=== PATIENT | female | born 1955 | race Caucasian/White ===

== ENCOUNTER 2021-01-11 09:02 | Outpatient (REF) | payer MEDICARE, OTHER, SELFPAY ==
[2021-01-11 11:52] LABS: Hemoglobin 14.3 g/dl (12.0-16.0); Mean Corpuscular HGB Conc 32.5 g/dl (31.0-35.0); Mean Corpuscular Hemoglobin 29.1 pg (27.0-33.0); Mean Corpuscular Volume 89.6 fL (80.0-98.0); Mean Platelet Volume 10.8 fL (9.4-12.3); Platelet Count 289 X10*3/uL (160-400); Red Blood Count 4.91 X10*6/uL (4.20-5.50); Red Cell Distribution Width 12.7 % (11.0-16.0); White Blood Count 9.7 X10*3/uL (4.8-10.8)
[2021-01-11 12:11] LABS: Alanine Aminotransferase 21 U/L (0-31); Albumin Level 4.6 g/dL (3.5-5.0); Alkaline Phosphatase 80 U/L (39-117); Anion Gap 14 (12-20); Aspartate Amino Transferase 23 U/L (5-31); Bilirubin Total 0.5 mg/dL (0.0-1.0); Blood Urea Nitrogen 8 mg/dL (9-16); Calcium 9.4 mg/dL (8.4-10.2); Carbon Dioxide 26 mmol/L (22-29); Chloride 104 mmol/L (96-108); Cholesterol 203 mg/dL; Estimated Glomerular Filt Rate > 60; Glucose Fasting 108 mg/dL (60-99); HDL Cholesterol 57 mg/dL; LDL Cholesterol Calculated 128 mg/dl; Potassium 4.5 mmol/L (3.3-5.1); Sodium 139 mmol/L (135-145); Total Protein 7.5 g/dL (6.5-8.0); Triglycerides 90 mg/dL
[2021-01-11 12:37] LABS: Vitamin D 25-OH Total 36.2 ng/mL (>30)
[2021-01-11 12:40] LABS: Folate 18.8 ng/mL (> or = 4.0); Vitamin B12 565 pg/mL (200-900)
== END 2021-01-11 09:03 | disposition home or self-care (01) ==
LOC: HO.HMGCLDS 09:02
PROVIDERS: PCP Internal Medicine; Visit Provider Internal Medicine
DX: Z00.00 Encounter for general adult medical examination without abnormal findings (principal); E55.9 Vitamin D deficiency, unspecified; Z78.0 Asymptomatic menopausal state
CPT/HCPCS: 36415; 80053; 80061; 82306; 82607; 82746; 85027

== ENCOUNTER 2021-02-16 13:04 | Outpatient (REF) | payer MEDICARE, OTHER, SELFPAY ==
--- NOTE | ~2021-02-16 | MM_ITS ---
EXAMINATION: BONE DENSITOMETRY CLINICAL INDICATION: Menopause. COMPARISON: None (current study represents initial baseline exam). TECHNIQUE: Using a [employer] DXA System (software version: 13.1) manufactured by [employer], dual-energy x-ray absorptiometry was performed of the lumbar spine and left hip. The images are of good technical quality. Summary results are attached. FINDINGS: AP SPINE L1-L4: BMD 1.031 g/cm2, Z-score 0.4, T-score -1.2, osteopenia. LEFT FEMUR, NECK: BMD 0.944 g/cm2, Z-score 0.8, T-score -0.7, normal. LEFT FEMUR, TOTAL: BMD 0.931 g/cm2, Z-score 0.6, T-score -0.6, normal. IDENTIFIED RISK FACTORS: Menopause. HISTORY OF FRACTURE: None listed. MEDICATIONS: Vitamin D. MM/XR DEXA axial skeleton IMPRESSION: 1. DIAGNOSIS: Osteopenia based on the lowest T-score value of -1.2 in the lumbar spine applying World Health Organization criteria. 2. 10-YEAR FRACTURE RISK PREDICTION, FRAX: Major osteoporotic fracture (clinical spine, forearm, hip or shoulder) 7.4%. Hip fracture 0.4%. 3. Treatment Recommendations: NOF guidelines recommend consideration for treatment in postmenopausal women and men age 50 and older presenting with the following: -A hip or vertebral (clinical or morphometric) fracture. -T-score less than or equal to -2.5 at the femoral neck or spine after appropriate evaluation to exclude secondary causes. -Low bone mass at the hip or spine and a 10-year fracture probability by FRAX of greater than or equal to 3% for hip fracture or greater than or equal to 20% for major osteoporotic fracture based on the [place] adapted WHO algorithm. 4. Other Recommendations: All treatment decisions require clinical judgment and consideration of individual patient factors, including patient preferences, comorbidities, previous drug use, risk factors not captured in the FRAX model (e.g. frailty, falls, vitamin D deficiency, increased bone turnover, interval significant decline in bone density) and possible under or overestimation of fracture risk by FRAX. Additional medical evaluation for secondary cause of low bone mineral density may be appropriate. FUTURE SCAN RECOMMENDATION: People with diagnosed cases of osteoporosis or at high risk for fracture should have regular bone mineral density tests. For patients eligible for Medicare, routine testing is allowed once every 2 years. The testing frequency can be increased to one year for patients who have rapidly progressing disease, those who are receiving or discontinuing medical therapy to restore bone mass, or have additional risk factors.
== END 2021-02-16 13:05 | disposition home or self-care (01) ==
LOC: HO.MAMMO 13:04
PROVIDERS: Visit Provider Internal Medicine
DX: Z13.820 Encounter for screening for osteoporosis (principal); M85.80 Other specified disorders of bone density and structure, unspecified site; Z78.0 Asymptomatic menopausal state; Z79.899 Other long term (current) drug therapy
CPT/HCPCS: 77080

== ENCOUNTER 2022-08-17 06:09 | Outpatient (REF) | payer MEDICARE, OTHER, SELFPAY ==
[2022-08-17 11:14] LABS: MANUAL DIFF FLAG NO
[2022-08-17 11:21] LABS: Basophils Absolute Auto 0.1 X10*3/uL (0.0-0.2); Eosinophils Absolute Auto 0.7 X10*3/uL (0.0-0.4); Eosinophils Percent Auto 7.8 % (0-4); Hematocrit 42.3 % (37.0-47.0); Hemoglobin 13.9 g/dl (12.0-16.0); Imm Gran Abs Auto 0.06 X10*3/uL (0.00-0.03); Imm Gran Pct Auto 0.7 % (0.0-0.4); Lymphocytes Absolute Auto 1.9 X10*3/uL (1.2-4.9); Lymphocytes Percent Auto 21.6 % (20-40); Mean Corpuscular HGB Conc 32.9 g/dl (31.0-35.0); Mean Corpuscular Hemoglobin 29.8 pg (27.0-33.0); Mean Corpuscular Volume 90.8 fL (80.0-98.0); Mean Platelet Volume 10.3 fL (9.4-12.3); Monocytes Absolute Auto 0.6 X10*3/uL (0.1-1.2); Monocytes Percent Auto 6.2 % (2-11); Neutrophils Absolute Auto 5.5 x10*3/uL (2.0-8.3); Neutrophils Percent Auto 62.7 % (45-73); Platelet Count 303 X10*3/uL (160-400); Red Blood Count 4.66 X10*6/uL (4.20-5.50); Red Cell Distribution Width 13.4 % (11.0-16.0); White Blood Count 8.8 X10*3/uL (4.8-10.8)
[2022-08-17 11:27] LABS: Appearance Urine Clear; Color Urine Dark Yellow; Glucose Urine UA Negative (Negative); Leukocyte Esterase Urine Negative (Negative); Nitrite Urine Negative (Negative); Urine Blood Negative (Negative); Urine Ketones Trace mg/dL (Negative); Urine Protein Trace mg/dL (Neg-Trace)
[2022-08-17 11:30] LABS: Bacteria Urine Trace (None Seen); Hyaline Casts Urine 0-2 /LPF (0-2); WBC Urine 0-5 /HPF (0-5)
[2022-08-17 12:00] LABS: Alanine Aminotransferase 16 U/L (0-31); Albumin Level 4.1 g/dL (3.5-5.0); Alkaline Phosphatase 56 U/L (39-117); Anion Gap 11 (12-20); Aspartate Amino Transferase 20 U/L (5-31); Blood Urea Nitrogen 11 mg/dL (9-16); Calcium 9.6 mg/dL (8.4-10.2); Carbon Dioxide 27 mmol/L (22-29); Chloride 106 mmol/L (96-108); Cholesterol 172 mg/dL; Estimated Glomerular Filt Rate > 60; Glucose Fasting 101 mg/dL (60-99); HDL Cholesterol 45 mg/dL; LDL Cholesterol Calculated 112 mg/dl; Potassium 4.4 mmol/L (3.3-5.1); Sodium 140 mmol/L (135-145); Total Protein 6.9 g/dL (6.5-8.0); Triglycerides 79 mg/dL
[2022-08-17 12:21] LABS: TSH reflex Free T4 1.07 uIU/mL (0.32-4.0); Vitamin D 25-OH Total 48.2 ng/mL (>30)
[2022-08-17 12:29] LABS: Folate 17.2 ng/mL (> or = 4.0); Vitamin B12 526 pg/mL (200-900)
== END 2022-08-17 06:10 | disposition home or self-care (01) ==
LOC: HO.HMGCLDS 06:09
PROVIDERS: PCP Internal Medicine; Visit Provider Internal Medicine
DX: Z00.00 Encounter for general adult medical examination without abnormal findings (principal); E53.8 Deficiency of other specified B group vitamins; E55.9 Vitamin D deficiency, unspecified
CPT/HCPCS: 36415; 80053; 80061; 81001; 82306; 82607; 82746; 84443; 85025

== ENCOUNTER 2022-08-23 06:09 | Outpatient (REF) | payer MEDICARE, OTHER, SELFPAY ==
[2022-08-23 11:35] LABS: Appearance Urine Clear; Color Urine Yellow; Glucose Urine UA Negative (Negative); Leukocyte Esterase Urine Trace (Negative); Nitrite Urine Negative (Negative); Specific Gravity - Urine 1.015 (1.005-1.025); UMIC TRIGGER UA YES; Urine Blood Negative (Negative); Urine Ketones Negative (Negative); Urine Protein Negative (Neg-Trace)
[2022-08-23 11:39] LABS: Bacteria Urine None Seen (None Seen); Hyaline Casts Urine 0-2 /LPF (0-2); RBC Urine 0-2 /HPF (0-2); WBC Urine 0-5 /HPF (0-5)
== END 2022-08-23 06:10 | disposition home or self-care (01) ==
LOC: HO.HMGCLDS 06:09
PROVIDERS: PCP Internal Medicine; Visit Provider Internal Medicine
DX: R31.29 Other microscopic hematuria (principal)
CPT/HCPCS: 81001; 87086

== ENCOUNTER 2022-09-08 07:10 | Outpatient (AMB) | payer MEDICARE, OTHER, SELFPAY ==
--- NOTE | 2022-09-08 07:16 | MHC.OFFVIS ---
Intake Vital Signs 09/08/22 07:21 Height 5 ft 5 in Weight 134 lb BMI 22.3 BP 106/61 Blood Pressure Location Lt brachial Position Sitting Pulse 65 Intake Visit Reasons: Hx Colon Polyps, Fecal Abnormalities Intake Note: Patient new consult for Hx Colon Polyps, Fecal Abnormalities. Patient cc: abdominal bloating, gassy, acid reflex, very thing and soft BM and occasional esophagus pain. 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 Accompanied by: Self / Same As Patient Allergies latex Allergy (Verified 09/08/22 07:15) eyes swelling Medication List - Last Reconciled 09/08/22 by Gretchen Holguin PA-C ascorbic acid (vitamin C) mg PO betamethasone, augmented 0.05 % topical cholecalciferol (vitamin D3) 25 mcg PO DAILY cyanocobalamin (vitamin B-12) 2,500 mcg PO DAILY krill [id number]-nylhfkuui 353 mg ([facility]) caps PO HPI HPI Comments History of Present Illness Details A 66 y/o female hx colon polyps- noted change in bowel diameter- hx colon polyps- colonoscopy Q 3 years- last 2019- no polyps- pushed out to 5 years- She is worried-there is such a drastic change- - has a history of polyps on vocal cords- after smoking for 50 years- more heartburn- taking more tums- Night sweats (? hot flashe)- cough- Appetite is good- reflux declines ppi No nausea, vomiting, hematemesis, hematochezia fever or chills PFSH Medical History (Updated 09/13/22 @ 11:44 by Gretchen Holguin PA-C) Acid reflux Annual physical exam Glaucoma Normal breast exam Postmenopausal Tobacco dependence Vitamin D deficiency Vocal cord polyps Surgical History H/O colonoscopy History of repair of vocal cord Family History Father No problems noted. Mother No problems noted. 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, Housing: House Patient Tobacco Use Status: Former Tobacco user Years Smoked: 50 yrs e-Cigarette/Vaping Use: Never Used Current occupational status: retired Cognitive needs: No Hearing needs: No Vision needs: Yes Review of Systems Const All systems reviewed & are unremarkable except as noted in HPI and below Denies weight gain Card Denies chest pain and Denies dyspnea Resp Denies dyspnea GI Denies abdominal pain, Reports change in bowel habits and Reports heartburn (Declines PPI) Psych Reports anxiety Physical Exam Vital Signs: Last Vital Signs Pulse 65 09/08/22 07:21 BP 106/61 09/08/22 07:21 BMI result Body Mass Index 22.3 Const General: cooperative, healthy appearing, comfortable and no acute distress Orientation/consciousness: patient oriented x3 Limitations: no limitations Eyes Sclerae: sclerae normal Resp Effort & Inspection: normal respiratory effort and able to speak in complete sentences Auscultation: clear to auscultation bilaterally, no rales, no rhonchi and no wheezes Cardio Rate: regular rate Rhythm: regular rhythm Heart sounds: S1 normal heart sound present and S2 normal heart sound present GI Palpation (GI): Soft to palpation and nontender Auscultation: normal bowel sounds Skin General skin exam: no rashes or lesions noted Neuro General: patient oriented x3 Extrem General: Yes full ROM Psych Appearance: grossly normal and well kempt Mental Status: mental status grossly normal Speech and movement: Normal speech and movement present and Clear speech present Affect: normal affect Attitude: cooperative Thought process: Normal thought process present Thought content: Normal thought content present Insight: Good insight present (Psych) Judgement: Good judgement present (Psych) Results Reviewed Results Reviewed: Chest CT- - no nodule Assessment & Plan Assessment & Plan (1) H/O colonoscopy: Comment: 12/2018, hx of polyps, Q [address] Gage Code(s): Z98.890 - Other specified postprocedural states Plan: Colonoscopy (2) Hx of colonic polyp: Comment: History of colon polyps-very anxious-previous colonoscopies every 3 years Will get repeat colonoscopy really sure Code(s): Z86.010 - Personal history of colonic polyps (3) Change in stool caliber: Comment: Likely increase fiber Code(s): R19.5 - Other fecal abnormalities (4) Acid reflux: Comment: Years of acid reflux, tones have increased need declines PPI Long history of cigarette smoking,-EGD Code(s): K21.9 - Gastro-esophageal reflux disease without esophagitis Plan: Encourage PPI-risks of not using acid suppression EGD r/o pud, nonulcer dyspepsia, esophagitis other endoscopic findings to account for her symptoms Reflux precautions reviewed avoid culprits Plan EGD/ colon/ MG prep Orders: Orders EGD/[place] Combo - GI Use Only 09/08/22 Z86.010 - Personal history of colonic polyps, Z98.890 - Other specified postprocedural states Medications: New bisacodyl (Dulcolax (bisacodyl)) Take 4 tablets by mouth at 12:00pm the day before your procedure. 20 mg (4 x 5 mg) PO ONCE 1 day 4 tabs 0RF colonoscopy prep Z12.11 - Encounter for screening for malignant neoplasm of colon polyethylene glycol 3350 (Miralax) Take as directed by mouth the day before your procedure. 238 grams PO ONCE 1 day PRN 238 grams 0RF laxative effect Patient Instructions: Pleasant somewhat anxious 66-year-old female personal history of colon polyps, vocal cord polyps referred with change in stool pattern-persistent acid reflux declines PPI Will schedule EGD as well as a colonoscopy-she is agreeable, discussed procedures, risks, need for escort due to anesthesia-MiraLax Gatorade prep literature Maintain high-fiber diet, fiber supplement Encouraged to call questions or concerns Appreciate the opportunity to assist in the care of the patient Coding Level of Care Code New Pt Level 3 (12988) Diagnoses H/O colonoscopy Z98.890 Hx of colonic polyp Z86.010 Change in stool caliber R19.5 Acid reflux K21.9 Time Spent (min) 30
[2022-09-08 07:21] VITALS: BP 106/61; PULSE 65; BMI 22.3
== END 2022-09-08 09:58 | disposition home or self-care (01) ==
PROVIDERS: PCP Internal Medicine; Visit Provider Physician Assistant
DX: Z98.890 Other specified postprocedural states (principal); Z86.010 Personal history of colon polyps; R19.5 Other fecal abnormalities; K21.9 Gastro-esophageal reflux disease without esophagitis
CPT/HCPCS: 99203

== ENCOUNTER → 2022-09-08 07:10 | Outpatient (BNVA) | payer MEDICARE, OTHER, SELFPAY | PROVIDERS: PCP Internal Medicine; Visit Provider Physician Assistant | DX: R19.5 Other fecal abnormalities (principal); K21.9 Gastro-esophageal reflux disease without esophagitis; Z86.010 Personal history of colon polyps | CPT/HCPCS: 99202 ==

== ENCOUNTER 2022-11-29 06:50 | Day surgery (SDC) | payer MEDICARE, OTHER, SELFPAY ==
[2022-11-25 11:07] VITALS: BMI 22.3
[2022-11-29 07:00] VITALS: BP 118/71; PULSE 55; RESP 16; TEMP 36.7; O2SAT 97
--- NOTE | 2022-11-29 08:04 | HO.ANESPROP2 ---
[facility] Active Problems Active Problems: All Active Problems (Updated 09/13/22 @ 11:44 by Gretchen Holguin PA-C) Acid reflux (Acute) Microscopic hematuria (Acute) Hx of colonic polyp (Acute) Change in stool caliber (Acute) Vitamin B12 deficiency (Acute) Vitamin D deficiency (Acute) Annual physical exam (Acute) Postmenopausal (Acute) H/O colonoscopy (Acute) Normal breast exam (Acute) Glaucoma (Acute) Tobacco dependence (Acute) Past Medical History Medical History (Updated 09/13/22 @ 11:44 by Gretchen Holguin PA-C) Acid reflux Vitamin D deficiency Annual physical exam Postmenopausal Normal breast exam Glaucoma Tobacco dependence Vocal cord polyps Family History Family History Father No problems noted. Mother No problems noted. 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 Tobacco Use Status: Former Tobacco user Years Smoked: 50 yrs e-Cigarette/Vaping Use: Never Used Use of substances other than those prescribed or required for medical reasons: No Advance Directives: No Advance Directives Information Provided: Yes Recently lost weight without trying: No Current occupational status: retired Cognitive needs: No Hearing needs: No Vision needs: Yes Meds Allergies Allergy/AdvReac Type Severity Reaction Status Date / Time latex Allergy eyes Verified 09/08/22 07:15 swelling Home Medications Medication Instructions Recorded Confirmed Last Taken Type ascorbic acid (vitamin C) 500 mg 500 mg PO DAILY 01/11/21 11/25/22 Unknown History capsule cholecalciferol (vitamin D3) 25 25 mcg PO DAILY 01/11/21 11/25/22 Unknown History mcg (1,000 unit) capsule cyanocobalamin (vitamin B-12) 2,500 mcg PO DAILY 01/11/21 11/25/22 Unknown History 2,500 mcg tablet krill oil-hyaluronic 1 cap PO DAILY 01/11/21 11/25/22 Unknown History acid-astaxanthin 353 mg capsule ([facility]) betamethasone, augmented 0.05 % 1 appl topical DAILY 08/12/22 11/25/22 Unknown History topical ointment Exam Exam Date and Time: November 29, 2022 0804 Height,Weight and Vital Signs: Height 5 ft 5 in Weight 60.781 kg Last Vital Signs Temp 98.1 F 11/29/22 07:00 Pulse 55 11/29/22 07:00 Resp 16 11/29/22 07:00 BP 118/71 11/29/22 07:00 Pulse Ox 97 11/29/22 07:00 O2 Del Method Room Air 11/29/22 07:00 Airway Mallampati Class: II TM Dist: >3cm Neck ROM: Full Denture: Upper Assessment and Plan Assessment Anesthesia Assessment: Anesthesia Plan Discussed and Chart Reviewed Final Anesthetic Review Family History of Problems with Anesthesia: No History of Problems with Anesthesia: No NPO: Yes ASA Class: II Final Preanesthetic Review: No Changes in Pt Med Stat, Meds/Allgs Chart Reviewed, Consent Obtained/Reviewed and Anes Risks/Benef Reviewed Patient Risk: Low Procedure Risk: Low Anesthetic Plan Anesthetic Plan: MAC: Disposition: Standard PACU
--- NOTE | 2022-11-29 08:45 | MHC.SHP ---
Pre-Procedural Eval Section A Date of Service: 11/29/22 Section B Chief Complaint: GERD, Screening, Personal history of colonic polyp Relevant Family History (Specify if Yes): No Relevant Social History: None Present Medications: see Short Stay Collaborative assessment Medical History: Significant History (Acid reflux Annual physical exam Glaucoma Normal breast exam Postmenopausal Tobacco dependence Vitamin D deficiency Vocal cord polyps) History of Previous Operations: Relevant previous surgery/procedure and date(s) (H/O colonoscopy History of repair of vocal cord) Allergies: Allergies Allergy/AdvReac Type Severity Reaction Status Date / Time latex Allergy eyes Verified 09/08/22 07:15 swelling Review of Systems Sugical H&P ROS: Negative: Constitution, Cardiovascular, Respiratory, Neurological, Psychiatric, Hem-Onc, Allergic/Immunologic, Gastrointestinal, Genitourinary, Musculoskeletal, Integumentary, Endocrine and Eyes/Ears/Nose/Throat Exam Surgical H&P Exam: Normal: HEENT, Normal: Heart, Normal: Lungs, Normal: Extremities, Normal: Abdomen, Normal: Skin and Normal: Neurological Plan Diagnosis/Plan: Unchanged I have reviewed the history and physical and performed a pertinent physical examination on my patient. No changes have occurred unless specified. Time Spent With Patient Time: Total time managing care of this patient today ____ minutes.
--- NOTE | 2022-11-29 08:56 | W.PM.OPN ---
Operative Note Operative Note Date of Service: 11/29/22 Narrative: Operative Information Procedure Description: EGD, Colonoscopy Indication: hx of colon polyps, dysphagia and GERD Anesthesia: MAC FLEXIBLE TRANSORAL UPPER GASTROINTESTINAL ENDOSCOPY AND COLONOSCOPY PROCEDURE NOTE UPPER ENDOSCOPY Consent: Indications for the procedure and potential complications of bleeding, perforation, reaction to medications and missed diagnosis were discussed with the patient and informed consent was obtained. Instrument: Olympus GIF H 190 J mid size upper endoscope Monitoring: Vital signs and clinical assessment, continuous EKG monitoring, Pulse oximetry, Carbon Dioxide monitoring and blood pressure monitoring were done throughout the procedure. Procedure: The patient was placed in the left lateral decubitis position and pre-procedure medications were administered and a bite block was placed. The endoscope was inserted into the mouth and advanced under direct vision to the third part of duodenum. A careful inspection was made as the upper endoscope was withdrawn including a retroflexed examination of the proximal stomach; Findings and interventions are described below. Findings: Larynx:normal Esophagus: GE junction at 40 cm, diaphragm hiatus at 40 cm, MILD ESOPHAGITIS At GEJ, bx taken from here and distal,proximal esophagus, balloon dilation done at LES and UES to 20 mm with superficial tear noted at UES Stomach: Patchy erythema. Biopsies were obtained. Grade 2 flap valve on retroflexed examination of the cardia. Lack of peristalsis noted. Duodenum: Bulbar duodenitis, bx taken Intervention: Biopsies as noted above, balloon dilation COLONOSCOPY Instrument: Olympus variable stiffness pediatric scope 190L Colonoscopy Monitoring: Vital signs and clinical assessment, continuous EKG monitoring, Pulse oximetry, Carbon Dioxide monitoring and blood pressure monitoring were done throughout the procedure. Colon withdrawal time was 10 minutes. Procedure: The patient was placed in the left lateral decubitis position and pre-procedure medications were administered. After a digital rectal examination of the ano-rectum, the video colonoscope was inserted into the rectum and advanced through the colon to the cecum/TI. The colonoscope was slowly withdrawn in a retrograde panoramic fashion and the colon mucosa was carefully examined including a retroflexed view of the rectum. Findings and interventions are described below. Procedure Difficulty:moderate with tortuous colon Findings: Terminal Ileum-normal Cecum:normal Ascending Colon: normal Transverse Colon -normal Descending Colon:normal Sigmoid Colon: normal Rectum: Retroflexion with medium sized internal hemorrhoids, grade I Anorectum - normal Colon preparation: [place] Bowel Preparation Scale Right colon; 2 Transverse colon: 2 Left colon; 2 (0 = Unprepared colon segment with mucosa not seen due to solid stool that cannot be cleared. 1 = Portion of mucosa of the colon segment seen, but other areas of the colon segment not well seen due to staining, residual stool and/or opaque liquid. 2 = Minor amount of residual staining, small fragments of stool and/or opaque liquid, but mucosa of colon segment seen well. 3 = Entire mucosa of colon segment seen well with no residual staining, small fragments of stool or opaque liquid) Impression and Post Procedure Diagnosis: Endoscopy Findings: possible gastroparesis esophagitis gastritis duodenitis Colonoscopy Findings: internal hemorrhoids Plan: Await Pathology results Repeat Colonoscopy in 10 years or earlier if clinically indicated High fiber diet leaflet avoid straining at stool, epsom salts and sitz bath, anusol supps or cream if not taking PPI can consider, if H pylori pos then treat magic mouthwash for post op throat pain , ok to take tylenol can consider GES if suspicion for gastroparesis Above findings were reviewed with the patient and relevant handouts were provided if indicated.
[2022-11-29 09:37] VITALS: BP 105/51; PULSE 64; RESP 16; TEMP 36.3; O2SAT 99
[2022-11-29 09:53] VITALS: BP 104/54; PULSE 60; RESP 16; TEMP 36.3; O2SAT 98
[2022-11-29 10:08] VITALS: BP 120/64; PULSE 60; RESP 16; TEMP 36.3; O2SAT 99
== END 2022-11-29 10:22 | disposition home or self-care (01) ==
PROVIDERS: PCP Internal Medicine; Visit Provider Internal Medicine Gastroenterology
PROC: (CPT 43249; principal; 2022-11-29 08:30)
DX: Z12.11 Encounter for screening for malignant neoplasm of colon (principal); Z86.010 Personal history of colon polyps; K64.0 First degree hemorrhoids; K21.9 Gastro-esophageal reflux disease without esophagitis; K20.80 Other esophagitis without bleeding; K29.80 Duodenitis without bleeding; K44.9 Diaphragmatic hernia without obstruction or gangrene; H40.9 Unspecified glaucoma; N95.8 Other specified menopausal and perimenopausal disorders; J38.1 Polyp of vocal cord and larynx; E55.9 Vitamin D deficiency, unspecified; Z87.891 Personal history of nicotine dependence; Z91.040 Latex allergy status
CPT/HCPCS: 43249; 43239; G0105; 88305; 88342; C1726

== ENCOUNTER → 2022-11-29 06:50 | Outpatient (BNV) | payer MEDICARE, OTHER, SELFPAY | PROVIDERS: PCP Internal Medicine; Visit Provider Internal Medicine Gastroenterology | DX: Z12.11 Encounter for screening for malignant neoplasm of colon (principal); Z86.010 Personal history of colon polyps; K64.8 Other hemorrhoids; K21.00 Gastro-esophageal reflux disease with esophagitis, without bleeding; K29.70 Gastritis, unspecified, without bleeding; K29.80 Duodenitis without bleeding | CPT/HCPCS: 43239; 43249; G0105; G0121 ==

== ENCOUNTER 2022-12-01 10:52 | Outpatient (AMB) | payer MEDICARE, OTHER, SELFPAY ==
[2022-12-01 10:53] VITALS: BP 122/78; PULSE 85; O2SAT 97; BMI 23.0
--- NOTE | 2022-12-01 10:53 | MHC.PC.OV ---
Vital Signs 12/01/22 10:53 Height 5 ft 5 in Weight 138 lb BMI 23.0 BP 122/78 Blood Pressure Location Lt brachial Position Sitting Pulse 85 Pulse Source Pulse Oximeter Pulse Oximetry (%) 97 Oxygen Delivery Method Room Air Intake Visit Reasons: Lump On Right Collar Bone Intake Note: Pt is here today for a sick visit. Pt c/o lump on R side of his collar bone. Allergies latex Allergy (Verified 12/01/22 10:58) eyes swelling Medication List - Last Reconciled 12/01/22 by Lizzy Lockett MD ascorbic acid (vitamin C) 500 mg PO DAILY betamethasone, augmented 0.05 % 1 appl topical DAILY cholecalciferol (vitamin D3) 25 mcg PO DAILY cyanocobalamin (vitamin B-12) 2,500 mcg PO DAILY krill qmk-zsxkawdzvi-vemeqrpfh 353 mg ([facility]) 1 cap PO DAILY Magic Mouthwash Diphen/Lido/Antacid 1:1:1 10 mL PO QID Tobacco use date assessed: 12/01/22 HPI Lump On Right Collar Bone HPI Details Patient presents for the follow-up of right clavicle asymmetry. She had a negative neck ultrasound and denies any change in the size or pain. [facility] Medical History (Updated 12/01/22 @ 11:25 by Lizzy Lockett MD) Acid reflux Vitamin D deficiency Annual physical exam Postmenopausal Normal breast exam Glaucoma Tobacco dependence Vocal cord polyps Surgical History History of repair of vocal cord H/O colonoscopy Family History Father No problems noted. 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 Tobacco Use Status: Former Tobacco user Years Smoked: 50 yrs e-Cigarette/Vaping Use: Never Used Current occupational status: retired Cognitive needs: No Hearing needs: No Vision needs: Yes Questionnaire Thrive Questionnaire Date Thrive assessed: 01/17/22 TELLY-7 AMB Questionnaire TELLY-7 Date TELLY - 7 assessed: 01/17/22 Feeling nervous, anxious, or on edge: 0 = Not at all Not being able to stop or control worryin = Not at all Worrying too much about different things: 0 = Not at all Trouble relaxin = Not at all Being so restless that it is hard to sit still: 0 = Not at all Becoming easily annoyed or irritable: 0 = Not at all Feeling afraid as if something awful might happen: 0 = Not at all Total TELLY-7 score (0-4 normal; 5-9 mild; 10-14 moderate; 15-21 severe): 0 Source: Developed by Drs. Edgard Farfan, Gabby Ocasio, Tao Cavlillo and colleagues, with an educational key from [employer]. Review of Systems Const All systems reviewed & are unremarkable except as noted in HPI and below Reports no additional complaints Eyes Reports no additional complaints ENT Reports no additional complaints Card Reports no additional complaints Resp Reports no additional complaints GI Reports no additional complaints Physical exam (Primary Care) Vital Signs: Last Vital Signs Pulse 85 12/01/22 10:53 BP 122/78 12/01/22 10:53 Pulse Ox 97 12/01/22 10:53 Oxygen Delivery Method Room Air 12/01/22 10:53 BMI result Body Mass Index 23.0 Tobacco/Smoking Status: Tobacco use Status Tobacco use date assessed 12/01/22 12/01/22 11:01 Patient Tobacco Use Status Former Tobacco user 12/01/22 10:59 e-Cigarette/Vaping Use Never Used 12/01/22 10:59 Thrive Assessment: Date of Thrive Assessment Date Thrive assessed 01/17/22 12/01/22 10:59 Const General: no acute distress HENMT Head: Yes normal to inspection Face and sinus: Yes normal facial exam Neck Other: R sternoclavicular joint enlargement, no tenderness, skin changes Neck: Yes no lymphadenopathy and Yes supple Resp Effort & Inspection: normal respiratory effort Auscultation: clear to auscultation bilaterally Cardio Rhythm: regular rhythm Heart sounds: S1 normal heart sound present and S2 normal heart sound present Assessment and Plan Assessment & Plan (1) Deformity, 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
== END 2022-12-01 11:48 | disposition home or self-care (01) ==
PROVIDERS: PCP Internal Medicine; Visit Provider Internal Medicine
DX: M95.8 Other specified acquired deformities of musculoskeletal system (principal)
CPT/HCPCS: 99213

== ENCOUNTER 2022-12-01 11:27 | Outpatient (REF) | payer MEDICARE, OTHER, SELFPAY | END 2022-12-01 11:28 | disposition home or self-care (01) | LOC: HO.HMGCX 11:27 | PROVIDERS: PCP Internal Medicine; Visit Provider Internal Medicine | DX: M95.8 Other specified acquired deformities of musculoskeletal system (principal) | CPT/HCPCS: 73000 ==

== ENCOUNTER 2022-12-12 09:04 | Outpatient (AMB) | payer MEDICARE, OTHER, SELFPAY ==
--- NOTE | 2022-12-12 09:10 | A.OFFVIS_ITS ---
Intake Vital Signs 12/12/22 09:12 Height 5 ft 5 in Weight 137 lb BMI 22.8 BP 104/61 Blood Pressure Location Lt brachial Position Sitting Pulse 55 Intake Visit Reasons: S/p double; Dr. Craig Intake Note: Patient follow up for Colonoscopy/EGD results. Patient denies any GI issues. Eligibility Consultant Required: No Accompanied by: Self / Same As Patient Allergies latex Allergy (Verified 12/12/22 09:09) eyes swelling Medication List - Last Reconciled 12/12/22 by Gretchen Holguin PA-C ascorbic acid (vitamin C) 500 mg PO DAILY betamethasone, augmented 0.05 % 1 appl topical DAILY cholecalciferol (vitamin D3) 25 mcg PO DAILY cyanocobalamin (vitamin B-12) 2,500 mcg PO DAILY krill [id number]-wougtkyjr 353 mg ([facility]) 1 cap PO DAILY Magic Mouthwash Diphen/Lido/Antacid 1:1:1 10 mL PO QID omeprazole 20 mg PO DAILY HPI HPI Comments History of Present Illness Details A 67-year-old female previous history of colon polyps follows up after recent EGD colonoscopy with biopsy She does complain early satiety, acid reflux intermittently however has not taken any medication Overall she is healthy she stays active- She has no other GI or general complete [facility] Medical History (Updated 12/12/22 @ 09:33 by Gretchen Holguin PA-C) Acid reflux Vitamin D deficiency Annual physical exam Postmenopausal Normal breast exam Glaucoma Tobacco dependence Vocal cord polyps Surgical History History of esophagogastroduodenoscopy (EGD) History of repair of vocal cord H/O colonoscopy Family History Father No problems noted. 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, Housing: House Patient Tobacco Use Status: Former Tobacco user Years Smoked: 50 yrs e-Cigarette/Vaping Use: Never Used Current occupational status: retired Cognitive needs: No Hearing needs: No Vision needs: Yes Review of Systems Const All systems reviewed & are unremarkable except as noted in HPI and below Card Details: All other systems reviewed and are negative GI Reports early satiety Physical Exam Vital Signs: Last Vital Signs Pulse 55 12/12/22 09:12 BP 104/61 12/12/22 09:12 BMI result Body Mass Index 22.8 Const General: cooperative, healthy appearing, comfortable and no acute distress Limitations: no limitations Psych Appearance: grossly normal and well kempt Mental Status: mental status grossly normal Speech and movement: Normal speech and movement present and Clear speech present Affect: normal affect Attitude: cooperative Thought process: Normal thought process present Thought content: Normal thought content present Insight: Good insight present (Psych) Judgement: Good judgement present (Psych) Results Reviewed Results Reviewed: Impression and Post Procedure Diagnosis: Endoscopy Findings: possible gastroparesis esophagitis gastritis duodenitis Colonoscopy Findings: internal hemorrhoids Plan: Await Pathology results Repeat Colonoscopy in 10 years or earlier if clinically indicated High fiber diet leaflet avoid straining at stool, epsom salts and sitz bath, anusol supps or cream if not taking PPI can consider, if H pylori pos then treat magic mouthwash for post op throat pain , ok to take tylenol can consider GES if suspicion for gastroparesis Name: Jamaica Schultz Age/Sex: 67/F Attending: Tomy Craig MD : 1955 Submitted by: Tomy Craig MD Copies to: Lizzy Lockett MD MR #: [id number] Status: [facility] Collected: 11/29/22 Location: [facility] Received: 11/29/22 Diagnosis A. Duodenum, biopsy: Chronic active/peptic duodenitis. B. Stomach, biopsy: Gastric antral and body mucosa with minimal chronic inactive gastritis; negative for H pylori, intestinal metaplasia and dysplasia. C. Gastroesophageal junction, biopsy: Squamous mucosa with hyperplasia and intraepithelial eosinophils (up to 20 per high-power field) consistent with reflux esophagitis, and columnar mucosa with mild chronic inflammation; negative for intestinal metaplasia and dysplasia. D. Esophagus, distal, biopsy: Squamous mucosa with mild hyperplasia and rare intraepithelial eosinophil (up to 1 per high-power field) compatible with reflux esophagitis; no columnar mucosa present. E. Esophagus, proximal, biopsy: Squamous mucosa with no specific change and scant subepithelial fibrous tissue with mild chronic inflammation, non-specific; no columnar mucosa present. Assessment & Plan Assessment & Plan (1) Esophagitis determined by biopsy: Code(s): K20.90 - Esophagitis, unspecified without bleeding (2) Early satiety: Code(s): R68.81 - Early satiety Plan: GES (3) Hemorrhoids: Code(s): K64.9 - Unspecified hemorrhoids Plan: HFD (4) Hx of colonic polyp: Comment: History of colon polyps-very anxious-previous colonoscopies every 3 years Will get repeat colonoscopy really sure Code(s): Z86.010 - Personal history of colonic polyps Plan: no polyps x2 - Orders: Orders NM gastric emptying study Today R68.81 - Early satiety Medications: New omeprazole 20 mg PO DAILY 30 caps 5RF Patient Instructions: Reviewed procedure report, pathology and recommended Omeprazole 20 mg daily avoid culprits Reflux precautions reviewed Maintain high-fiber diet Avoid straining with hemorrhoid Repeat asymptomatic colonoscopy 10 years Coding Level of Care Code Est Pt Level 3 (15425) Diagnoses Esophagitis determined by biopsy K20.90 Early satiety R68.81 Hemorrhoids K64.9 Hx of colonic polyp Z86.010 Time Spent (min) 20
[2022-12-12 09:12] VITALS: BP 104/61; PULSE 55; BMI 22.8
== END 2022-12-12 10:38 | disposition home or self-care (01) ==
PROVIDERS: PCP Internal Medicine; Visit Provider Physician Assistant
DX: K20.90 Esophagitis, unspecified without bleeding (principal); R68.81 Early satiety; K64.9 Unspecified hemorrhoids; Z86.010 Personal history of colon polyps
CPT/HCPCS: 99213

== ENCOUNTER → 2022-12-12 09:04 | Outpatient (BNVA) | payer MEDICARE, OTHER, SELFPAY | PROVIDERS: PCP Internal Medicine; Visit Provider Physician Assistant | DX: K20.90 Esophagitis, unspecified without bleeding (principal); K64.9 Unspecified hemorrhoids; R68.81 Early satiety; Z86.010 Personal history of colon polyps | CPT/HCPCS: 99212 ==

== ENCOUNTER → 2023-01-04 07:54 | Outpatient (REF) | payer MEDICARE, OTHER, SELFPAY ==
--- NOTE | ~2023-01-04 | NM_ITS ---
EXAMINATION: RADIONUCLIDE SOLID FOOD GASTRIC EMPTYING 4-HOUR STUDY CLINICAL INFORMATION: Early satiety. COMPARISON: No previous gastric emptying study is available for comparison. TECHNIQUE: A standard meal consisting of 4 oz of Egg Beaters brand equivalent tagged with 1.0 mCi Tc-99m Sulfur Colloid, 8 oz water and 2 slices of toast with jelly was administered orally to the patient. Images were obtained using a dual head gamma camera in the anterior and posterior projections over of the stomach immediately post ingestion and at hourly intervals up to 4 hours post ingestion. The anterior and posterior counts at each time interval were averaged using the geometric mean and expressed as percentage of the immediate post ingestion counts. FINDINGS: There is good visualization of activity in the stomach immediately post ingestion. As the study progresses, there is good clearance of activity from the stomach and visualization of progressively increasing small bowel activity. By the end of the study, there is almost no retention noted in the stomach. Retention in the stomach at each time interval was: 1 hour 69% (normal 37%-90%) 2 hours 35% (normal 30%-60%) 3 hours 15% 4 hours 9% (normal 0%-10%) NM/NM gastric emptying study IMPRESSION: Normal 4-hour solid food gastric emptying study. Gastric emptying study grading per JNMT Consensus Recommendations in 2008: https://tech.snmjournals.org/content/36//44 Grade 1 (mild retention): 11-20% at 4 hours Grade 2 (moderate retention): 21-35% at 4 hours Grade 3 (severe retention): 36-50% at 4 hours Grade 4 (very severe retention): >50% retention at 4 hours
== END ==
LOC: HO.NUCMED 07:54
PROVIDERS: PCP Internal Medicine; Visit Provider Physician Assistant
DX: R68.81 Early satiety (principal)
CPT/HCPCS: 78264; A9541

== ENCOUNTER 2023-01-12 08:17 | Outpatient (AMB) | payer MEDICARE, OTHER, SELFPAY ==
[2023-01-12 08:19] VITALS: BP 128/60; PULSE 58; BMI 22.9
--- NOTE | 2023-01-12 08:19 | A.OFFVIS_ITS ---
Intake Vital Signs 01/12/23 08:19 Height 5 ft 5 in Weight 137 lb 9.095 oz BMI 22.9 BP 128/60 Blood Pressure Location Lt brachial Position Sitting Pulse 58 Pulse Source Pulse Oximeter Intake Visit Reasons: follow up after Nuc Med study Intake Note: Pt presents to the office today for a follow up after nuclear med study. Pt states she is feeling well. Pt states she has not been having any issues swallowing and denies any GI concerns at this time. Allergies latex Allergy (Verified 01/12/23 08:22) eyes swelling Medication List - Last Reconciled 01/12/23 by Gretchen Holguin PA-C ascorbic acid (vitamin C) 500 mg PO DAILY betamethasone, augmented 0.05 % 1 appl topical DAILY cholecalciferol (vitamin D3) 25 mcg PO DAILY cyanocobalamin (vitamin B-12) 2,500 mcg PO DAILY krill jrq-lwpufiyiey-ejfpewcro 353 mg ([facility]) 1 cap PO DAILY omeprazole 20 mg PO DAILY HPI HPI Comments History of Present Illness Details 67-year-old female follows up for early satiety after having gastric emptying study. She presents with no GI complaints today. She is taking omeprazole 20 mg- good response Appetite is good Mildly looser stool past couple days no abdominal pain or any other GI complaints We again reviewed her EGD and colonoscopy report, pathology and recommendation Has no nausea, vomiting, hematemesis, hematochezia fever chills Reviewed procedure report [facility] Medical History Acid reflux Vitamin D deficiency Annual physical exam Postmenopausal Normal breast exam Glaucoma Tobacco dependence Vocal cord polyps Surgical History History of esophagogastroduodenoscopy (EGD) History of repair of vocal cord H/O colonoscopy Family History Father No problems noted. 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 Alcohol intake: current Alcohol intake frequency: a few times a week Alcohol type: wine Patient Tobacco Use Status: Former Tobacco user Years Smoked: 50 yrs e-Cigarette/Vaping Use: Never Used Current occupational status: retired Cognitive needs: No Hearing needs: No Vision needs: Yes Review of Systems Const All systems reviewed & are unremarkable except as noted in HPI and below Card Denies chest pain and Denies dyspnea Resp Denies dyspnea GI Denies abdominal pain, Denies heartburn, Reports loose stools (past couple days) and Denies nausea Physical Exam Vital Signs: Last Vital Signs Pulse 58 01/12/23 08:19 BP 128/60 01/12/23 08:19 BMI result Body Mass Index 22.9 Const General: cooperative, healthy appearing, comfortable and no acute distress Orientation/consciousness: patient oriented x3 Limitations: no limitations Resp Effort & Inspection: normal respiratory effort and able to speak in complete sentences Skin General skin exam: no rashes or lesions noted Neuro General: patient oriented x3 Extrem General: Yes full ROM Psych Appearance: grossly normal and well kempt Mental Status: mental status grossly normal Speech and movement: Normal speech and movement present and Clear speech present Affect: normal affect Attitude: cooperative Thought process: Normal thought process present Thought content: Normal thought content present Insight: Good insight present (Psych) Judgement: Good judgement present (Psych) Results Reviewed Results Reviewed: RDER #: [id number] NM/NM gastric emptying study IMPRESSION: Normal 4-hour solid food gastric emptying study. Gastric emptying study grading per JNMT Consensus Recommendations in 2008: https://tech.snmjournals.org/content/36/44 Grade 1 (mild retention): 11-20% at 4 hours Grade 2 (moderate retention): 21-35% at 4 hours Grade 3 (severe retention): 36-50% at 4 hours Grade 4 (very severe retention): >50% retention at 4 hours 11/29/22 Impression and Post Procedure Diagnosis: Endoscopy Findings: possible gastroparesis esophagitis gastritis duodenitis Colonoscopy Findings: internal hemorrhoids Plan: Await Pathology results Repeat Colonoscopy in 10 years or earlier if clinically indicated High fiber diet leaflet avoid straining at stool, epsom salts and sitz bath, anusol supps or cream if not taking PPI can consider, if H pylori pos then treat magic mouthwash for post op throat pain , ok to take tylenol can consider GES if suspicion for gastroparesis Name: Jamaica Schultz Age/Sex: 67/F Attending: Tomy Craig MD : 1955 Submitted by: Tomy Craig MD Copies to: Lizzy Lockett MD MR #: [id number] Status: [facility] Collected: 11/29/22 Location: [facility] Received: 11/29/22 Diagnosis A. Duodenum, biopsy: Chronic active/peptic duodenitis. B. Stomach, biopsy: Gastric antral and body mucosa with minimal chronic inactive gastritis; negative for H pylori, intestinal metaplasia and dysplasia. C. Gastroesophageal junction, biopsy: Squamous mucosa with hyperplasia and intraepithelial eosinophils (up to 20 per high-power field) consistent with reflux esophagitis, and columnar mucosa with mild chronic inflammation; negative for intestinal metaplasia and dysplasia. D. Esophagus, distal, biopsy: Squamous mucosa with mild hyperplasia and rare intraepithelial eosinophil (up to 1 per high-power field) compatible with reflux esophagitis; no columnar mucosa present. E. Esophagus, proximal, biopsy: Squamous mucosa with no specific change and scant subepithelial fibrous tissue with mild chronic inflammation, non-specific; no columnar mucosa present. Assessment & Plan Assessment & Plan (1) Early satiety: Comment: Gastric emptying study normal Dietary modification changes beneficial Code(s): R68.81 - Early satiety Plan: Continue small portions at a time (2) Esophagitis determined by biopsy: Comment: Reviewed procedure report pathology and recommended Code(s): K20.90 - Esophagitis, unspecified without bleeding Plan: continue omeprazole 20 mg Plan Continue PPI Reflux precautions reviewed Small portions at a time Patient Instructions: Very pleasant 67-year-old female follows up after recent gastric emptying study with complaints of early satiety that have now resolved. Dietary modification Meds have been beneficial she will Continue PPI Reflux precautions reviewed Small portions at a time Encouraged to call questions or concerns Will follow-up in 3 months sooner if indicated Coding Level of Care Code Est Pt Level 3 (22630) Diagnoses Early satiety R68.81 Esophagitis determined by biopsy K20.90 Time Spent (min) 25
== END 2023-01-12 08:50 | disposition home or self-care (01) ==
PROVIDERS: PCP Internal Medicine; Visit Provider Physician Assistant
DX: R68.81 Early satiety (principal); K20.90 Esophagitis, unspecified without bleeding
CPT/HCPCS: 99213

== ENCOUNTER → 2023-01-12 08:17 | Outpatient (BNVA) | payer MEDICARE, OTHER, SELFPAY | PROVIDERS: PCP Internal Medicine; Visit Provider Physician Assistant | DX: K20.90 Esophagitis, unspecified without bleeding (principal); R68.81 Early satiety | CPT/HCPCS: 99212 ==

== ENCOUNTER 2023-04-18 08:01 | Outpatient (AMB) | payer MEDICARE, OTHER, SELFPAY ==
--- NOTE | 2023-04-18 08:16 | MHC.OFFVIS ---
Intake Vital Signs 04/18/23 08:19 Height 5 ft 5 in Weight 137 lb BMI 22.8 BP 99/56 L Blood Pressure Location Lt brachial Position Sitting Pulse 56 Intake Visit Reasons: 3 month follow up Intake Note: Patient follow up for abdominal bloating Patient cc: abdominal bloating on and off, and some diarrhea. Denies any other GI issues. 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 Accompanied by: Self / Same As Patient Allergies latex Allergy (Verified 04/18/23 08:16) eyes swelling HPI HPI Comments History of Present Illness Details A 67 y/o female acid reflux- good response with omeprazole for reflux- however causes diarhhea-loose stool for 3 days- she did start chewing nicorette due to urge to smoke- which she admits -she enjoyed- She has no belly pain-N/V/ fever or chills PFSH Medical History (Updated 04/18/23 @ 13:04 by Gretchen Holguin PA-C) Acid reflux Vitamin D deficiency Annual physical exam Postmenopausal Normal breast exam Glaucoma Tobacco dependence Vocal cord polyps Surgical History History of esophagogastroduodenoscopy (EGD) History of repair of vocal cord H/O colonoscopy Family History Father No problems noted. 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 Alcohol intake: current Alcohol intake frequency: a few times a week Alcohol type: wine Patient Tobacco Use Status: Former Tobacco user Years Smoked: 50 yrs e-Cigarette/Vaping Use: Never Used Current occupational status: retired Cognitive needs: No Hearing needs: No Vision needs: Yes Review of Systems Const All systems reviewed & are unremarkable except as noted in HPI and below Card Denies chest pain and Denies dyspnea Resp Denies dyspnea GI Denies abdominal pain, Denies heartburn, Reports loose stools, Denies nausea and Denies vomiting Physical Exam Vital Signs: Last Vital Signs Pulse 56 04/18/23 08:19 BP 99/56 L 04/18/23 08:19 BMI result Body Mass Index 22.8 Const General: cooperative, healthy appearing, comfortable and no acute distress Orientation/consciousness: patient oriented x3 Limitations: no limitations Eyes Sclerae: sclerae normal Resp Effort & Inspection: normal respiratory effort and able to speak in complete sentences Auscultation: clear to auscultation bilaterally, no rales, no rhonchi and no wheezes Cardio Rate: regular rate Rhythm: regular rhythm Heart sounds: S1 normal heart sound present and S2 normal heart sound present GI Palpation (GI): Soft to palpation and nontender Auscultation: normal bowel sounds Skin General skin exam: no rashes or lesions noted Neuro General: patient oriented x3 Extrem General: Yes full ROM Psych Appearance: grossly normal and well kempt Mental Status: mental status grossly normal Speech and movement: Normal speech and movement present and Clear speech present Affect: normal affect Attitude: cooperative Thought process: Normal thought process present Thought content: Normal thought content present Results Reviewed Results Reviewed: 11/2022- Rafa mpression and Post Procedure Diagnosis: Endoscopy Findings: possible gastroparesis esophagitis gastritis duodenitis Colonoscopy Findings: internal hemorrhoids Plan: Await Pathology results Repeat Colonoscopy in 10 years or earlier if clinically indicated High fiber diet leaflet avoid straining at stool, epsom salts and sitz bath, anusol supps or cream if not taking PPI can consider, if H pylori pos then treat magic mouthwash for post op throat pain , ok to take tylenol can consider GES if suspicion for gastroparesis Name: Jamaica Schultz Age/Sex: 67/F Attending: Tomy Craig MD : 1955 Submitted by: Tomy Craig MD Copies to: Lizzy Lockett MD MR #: [id number] Status: [facility] Collected: 11/29/22 Location: [facility] Received: 11/29/22 Diagnosis A. Duodenum, biopsy: Chronic active/peptic duodenitis. B. Stomach, biopsy: Gastric antral and body mucosa with minimal chronic inactive gastritis; negative for H pylori, intestinal metaplasia and dysplasia. C. Gastroesophageal junction, biopsy: Squamous mucosa with hyperplasia and intraepithelial eosinophils (up to 20 per high-power field) consistent with reflux esophagitis, and columnar mucosa with mild chronic inflammation; negative for intestinal metaplasia and dysplasia. D. Esophagus, distal, biopsy: Squamous mucosa with mild hyperplasia and rare intraepithelial eosinophil (up to 1 per high-power field) compatible with reflux esophagitis; no columnar mucosa present. E. Esophagus, proximal, biopsy: Squamous mucosa with no specific change and scant subepithelial fibrous tissue with mild chronic inflammation, non-specific; no columnar mucosa present. Assessment & Plan Assessment & Plan Assessment & Plan (1) Esophagitis determined by biopsy: Comment: Reviewed procedure report pathology and recommendations Code(s): K20.90 - Esophagitis, unspecified without bleeding (2) Acid reflux: Comment: Years of acid reflux, reviewedEGD Code(s): K21.9 - Gastro-esophageal reflux disease without esophagitis Plan: pantoprazole 20 reflux precautions Plan switch from omeprazole to pantoprazole 20 - will call with progress Medications: New pantoprazole 20 mg PO QAM 30 days 30 tabs 6RF pantoprazole 20 mg PO QAM 90 days 90 tabs 4RF Patient Instructions: switch from omeprazole to pantoprazole will call with progress monitor- bowels Call with concerns- Coding Level of Care Code Est Pt Level 3 (98439) Diagnoses Esophagitis determined by biopsy K20.90 Acid reflux K21.9 Time Spent (min) 25
[2023-04-18 08:19] VITALS: BP 99/56; PULSE 56; BMI 22.8
== END 2023-04-18 09:01 | disposition home or self-care (01) ==
PROVIDERS: PCP Internal Medicine; Visit Provider Physician Assistant
DX: K20.90 Esophagitis, unspecified without bleeding (principal); K21.9 Gastro-esophageal reflux disease without esophagitis
CPT/HCPCS: 99213

== ENCOUNTER → 2023-04-18 08:01 | Outpatient (BNVA) | payer MEDICARE, OTHER, SELFPAY | PROVIDERS: PCP Internal Medicine; Visit Provider Physician Assistant | DX: K20.90 Esophagitis, unspecified without bleeding (principal); K21.9 Gastro-esophageal reflux disease without esophagitis | CPT/HCPCS: 99212 ==

== ENCOUNTER 2023-09-07 09:07 | Outpatient (AMB) | payer MEDICARE, OTHER, SELFPAY ==
[2023-09-07 09:10] VITALS: BP 118/76; PULSE 89; TEMP 36.7; O2SAT 97; BMI 26.0
--- NOTE | 2023-09-07 09:10 | MHC.OFFWIV ---
Intake Vital Signs 09/07/23 09:10 Height 5 ft 5 in Weight 156 lb BMI 26.0 BP 118/76 Blood Pressure Location Lt brachial Position Sitting Pulse 89 Pulse Source Pulse Oximeter Temp 98.1 F Temp Source Oral Pulse Oximetry (%) 97 Intake Visit Reasons: EP ?Sinus Infection Intake Note: pt is here for sinus infection, covid positive 9 days ago Patient Tobacco Use Status: Former Tobacco user Allergies latex Allergy (Verified 09/07/23 09:10) eyes swelling Medication List - Last Reconciled 09/07/23 by Dipika Fuentes NP amoxicillin-pot clavulanate 875-125 mg 1 tab PO BID 7 days ascorbic acid (vitamin C) 500 mg PO DAILY betamethasone, augmented 0.05 % 1 appl topical DAILY cholecalciferol (vitamin D3) 25 mcg PO DAILY cyanocobalamin (vitamin B-12) 2,500 mcg PO DAILY krill ljx-nrcggakmyw-ummejgbyi 353 mg (Mega[employer] [facility]) 1 cap PO DAILY omeprazole 20 mg PO DAILY pantoprazole 20 mg PO QAM 90 days Do you need a note to return to daycare/school/sports/work: No HPI EP ?Sinus Infection HPI Details This note is constructed using voice recognition software. While every effort has been made to ensure accuracy, patient's librarian errors may have been included. 67-year-old female presents one-week history sinus congestion following COVID positive test 9 days ago. She notes that the pressure is getting worse, is primarily in the maxillary region, she can feel like her upper teeth have pressure, as well as her eyes. She has tried decongestants which helped temporarily, however the symptoms return. She continues to have symptoms such as cough and congestion, generalized fatigue, and low-grade fever since being diagnosed with COVID, so was unable to determine the difference between that and the symptoms related to her sinuses. [facility] Medical History Acid reflux Vitamin D deficiency Annual physical exam Postmenopausal Normal breast exam Glaucoma Tobacco dependence Vocal cord polyps Surgical History History of esophagogastroduodenoscopy (EGD) History of repair of vocal cord H/O colonoscopy Family History Father No problems noted. 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, Housing: House Alcohol intake: current Alcohol intake frequency: a few times a week Alcohol type: wine Patient Tobacco Use Status: Former Tobacco user Years Smoked: 50 yrs e-Cigarette/Vaping Use: Never Used Current occupational status: retired Cognitive needs: No Hearing needs: No Vision needs: Yes Review of Systems Const All systems reviewed & are unremarkable except as noted in HPI and below Physical Exam Vital Signs: Last Vital Signs Temp 98.1 F 09/07/23 09:10 Pulse 89 09/07/23 09:10 BP 118/76 09/07/23 09:10 Pulse Ox 97 09/07/23 09:10 BMI result Body Mass Index 26.0 Const General: cooperative, healthy appearing, comfortable and no acute distress Orientation/consciousness: patient oriented x3 Limitations: no limitations HEENT Head: Yes normal to inspection Ears: hearing grossly normal bilaterally, external ears normal and TM abnormal with fluid behind the TM bilateral (Cloudy) General nose exam: Normal external nose present, Normal nares present and No nasal discharge present Face and sinus: Yes sinus tenderness (Maxillary, right more than left.) Mouth: Normal oral and palatal mucosa present and moist mucous membranes Throat: Yes tonsils normal, Yes uvula midline and Yes posterior oropharynx abnormal (Erythema) Eyes General: appearance normal, both eyes and all related structures Neck Neck: Yes normal visual inspection Resp Effort & Inspection: normal respiratory effort, able to speak in complete sentences, Actively coughing, no respiratory distress, not tachypneic, no tripod positioning and no use of accessory muscles Auscultation: clear to auscultation bilaterally Cardio Jugular venous distension: no JVD Rate: regular rate Rhythm: regular rhythm Heart sounds: S1 normal heart sound present, S2 normal heart sound present, no click, no gallops, no murmurs and no rubs Skin General skin exam: no rashes or lesions noted, elasticity normal and turgor normal Neuro General: patient oriented x3 Extrem General: Yes normal to inspection and Yes no clubbing, cyanosis or edema Assessment & Plan Assessment & Plan (1) Acute bacterial sinusitis: Code(s): J01.90 - Acute sinusitis, unspecified; B96.89 - Other specified bacterial agents as the cause of diseases classified elsewhere Plan: Supportive measures encouraged and reviewed, antibiotics ordered, advised patient to take to completion. May add probiotic or yogurt to help reduce risk of side effects with antibiotics. Advised used sinus rinse, steam as needed to help reduce symptoms. Follow-up as needed with worsening or failure to resolve. (2) COVID-19: Code(s): U07.1 - COVID-19 Plan: Advised continuation of mask wearing through tomorrow, or until symptoms subside. Continue without home measures including rest, hydration, antipyretics as needed. Plan See above for full details and plan. Medications: New amoxicillin-pot clavulanate 875-125 mg 1 tab PO BID 7 days 14 tabs 0RF Coding Level of Care Code Est Pt Level 4 (01419) Diagnoses Acute bacterial sinusitis J01.90; B96.89 COVID-19 U07.1
== END 2023-09-07 09:39 | disposition home or self-care (01) ==
PROVIDERS: PCP Internal Medicine; Visit Provider Registered Nurse
DX: J01.90 Acute sinusitis, unspecified (principal); B96.89 Other specified bacterial agents as the cause of diseases classified elsewhere; U07.1 COVID-19
CPT/HCPCS: 99214

== ENCOUNTER 2023-11-28 07:03 | Outpatient (REF) | payer MEDICARE, OTHER, SELFPAY ==
[2023-11-28 10:01] LABS: MANUAL DIFF FLAG NO
[2023-11-28 10:05] LABS: Basophils Absolute Auto 0.1 X10*3/uL (0.0-0.2); Basophils Percent Auto 1.2 % (0-2); Eosinophils Absolute Auto 0.3 X10*3/uL (0.0-0.4); Eosinophils Percent Auto 4.1 % (0-4); Hematocrit 41.8 % (37.0-47.0); Hemoglobin 13.7 g/dl (12.0-16.0); Imm Gran Abs Auto 0.07 X10*3/uL (0.00-0.03); Imm Gran Pct Auto 0.9 % (0.0-0.4); Lymphocytes Absolute Auto 1.8 X10*3/uL (1.2-4.9); Mean Corpuscular HGB Conc 32.8 g/dl (31.0-35.0); Mean Corpuscular Hemoglobin 29.1 pg (27.0-33.0); Mean Corpuscular Volume 88.7 fL (80.0-98.0); Mean Platelet Volume 10.5 fL (9.4-12.3); Monocytes Absolute Auto 0.4 X10*3/uL (0.1-1.2); Monocytes Percent Auto 5.7 % (2-11); Neutrophils Absolute Auto 4.7 x10*3/uL (2.0-8.3); Neutrophils Percent Auto 64.1 % (45-73); Platelet Count 284 X10*3/uL (160-400); Red Blood Count 4.71 X10*6/uL (4.20-5.50); White Blood Count 7.4 X10*3/uL (4.8-10.8)
[2023-11-28 10:28] LABS: Alanine Aminotransferase 15 U/L (0-31); Albumin Level 4.2 g/dL (3.5-5.0); Alkaline Phosphatase 66 U/L (39-117); Anion Gap 12 (12-20); Aspartate Amino Transferase 17 U/L (5-31); Bilirubin Total 0.5 mg/dL (0.0-1.0); Blood Urea Nitrogen 11 mg/dL (9-16); Calcium 9.4 mg/dL (8.4-10.2); Carbon Dioxide 26 mmol/L (22-29); Chloride 106 mmol/L (96-108); Cholesterol 181 mg/dL (<200); Estimated Glomerular Filt Rate > 60; Glucose Fasting 98 mg/dL (60-99); HDL Cholesterol 48 mg/dL (>40); LDL Cholesterol Calculated 119 mg/dL (<100); Potassium 4.2 mmol/L (3.3-5.1); Sodium 140 mmol/L (135-145); Total Protein 7.2 g/dL (6.5-8.0); Triglycerides 71 mg/dL (<150)
[2023-11-28 10:46] LABS: TSH reflex Free T4 1.13 uIU/mL (0.32-4.0); Vitamin D 25-OH Total 43.1 ng/mL (>30)
== END 2023-11-28 07:04 | disposition home or self-care (01) ==
LOC: HO.HMGCLDS 07:03
PROVIDERS: PCP Internal Medicine; Visit Provider Internal Medicine
DX: Z00.00 Encounter for general adult medical examination without abnormal findings (principal); E55.9 Vitamin D deficiency, unspecified; E53.8 Deficiency of other specified B group vitamins
CPT/HCPCS: 36415; 80053; 80061; 82306; 84443; 85025

== ENCOUNTER 2023-12-07 08:46 | Outpatient (AMB) | payer MEDICARE, OTHER, SELFPAY ==
[2023-12-07 08:49] VITALS: BP 122/76; PULSE 87; O2SAT 98; BMI 23.8
--- NOTE | 2023-12-07 08:49 | AM.OFFVISMDC ---
Intake Vital Signs 12/07/23 08:49 Height 5 ft 5 in Weight 143 lb BMI 23.8 BP 122/76 Blood Pressure Location Lt brachial Position Sitting Pulse 87 Pulse Source Pulse Oximeter Pulse Oximetry (%) 98 Oxygen Delivery Method Room Air Intake Visit Reasons: AWV Allergies latex Allergy (Verified 12/07/23 08:53) eyes swelling Medication List - Last Reconciled 12/07/23 by Lizzy Lockett MD ascorbic acid (vitamin C) 500 mg PO DAILY betamethasone, augmented 0.05 % 1 appl topical DAILY cholecalciferol (vitamin D3) 25 mcg PO DAILY cyanocobalamin (vitamin B-12) 2,500 mcg PO DAILY krill [id number]-zqqsuhtyhg-czqvymtbe 353 mg (MegaRed Joint Care) 1 cap PO DAILY pantoprazole 20 mg PO QAM 90 days HPI AWV HPI Details Initiated the conversation about Advanced Directives. Advanced Directives help? patients prepare for current and future decisions about their medical treatment? and place of care. Discussed with patient that it is a process where a patients? current condition and prognosis are reviewed, their wishes for information? regarding their illness are elicited, and likely medical dilemmas are presented? and options discussed. The form can be amended as needed, reviewed yearly and? make changes as needed IPPE/AWV ? year old presents? for her ? Annual? Wellness Visit, initial visit.? Medical / Social History Reviewed? Past Medical History ?Yes? . ? [place]? of Care / Care Team list updated ?Yes . ? Surgical/Hospitalization? History ?Yes . ? Current Medications? (including OTC and supplements) ?Yes . ? Family History ?Yes? . ? Tobacco? Control form ?Yes . ? AUDIT-C (Alcohol use) form? ?Yes . ? Illicit drug use in Social? History ?Yes . ? Current diagnosis of? depression? ?No ? Appropriate PHQ2/PHQ9? completed ?Yes . ? Data entered by ?Medical? Health Safety Manager and reviewed by provider ? Fall Risk ? Fall? History? Have you had any falls with? injury in the past year? ?No . ? Have you had two or more? falls in the past year? ?No . ? Fall Risk Assessment: ?No? falls in the past year . ? HRA filled out by? the patient, reviewed by Provider and scanned. ? IPPE/AWV ? Balance? [place]? ?Yes . ? Tandem? walk ?Yes . ? Walk and? Turn ?Yes . ? Rise from? sit to stand ?Yes . ?Vision? Corrective? lens ?Yes ? Vision? screen ? Up-to-date, has an appointment [] for vision? screening and glaucoma screening ?Hearing? Whisper? test ?pass .? Initiated the conversation about Advanced Directives. Advanced Directives help? patients prepare for current and future decisions about their medical treatment? and place of care. Discussed with patient that it is a process where a patients? current condition and prognosis are reviewed, their wishes for information? regarding their illness are elicited, and likely medical dilemmas are presented? and options discussed. The form can be amended as needed, reviewed yearly and? make changes as needed Written? Plan?Completed. See Patient? Documents. [facility] Medical History (Updated 12/07/23 @ 09:23 by Lizzy Lockett MD) Acid reflux Vitamin D deficiency Annual physical exam Postmenopausal Normal breast exam Glaucoma Tobacco dependence Vocal cord polyps Surgical History History of esophagogastroduodenoscopy (EGD) History of repair of vocal cord H/O colonoscopy Family History Father No problems noted. 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 Alcohol intake: current Alcohol intake frequency: a few times a week Alcohol type: wine Patient Tobacco Use Status: Former Tobacco user Years Smoked: 50 yrs e-Cigarette/Vaping Use: Never Used Current occupational status: retired Cognitive needs: No Hearing needs: No Vision needs: Yes Questionnaire Medicare Wellness Checkup [age] 65-69 What gender do you identify with?: female During the past 4 weeks, how much have you been bothered by emotional problems such as feeling anxious, depressed, irritable, sad or downhearted, and blue?: not at all During the past 4 weeks, has your physical & emotional health limited your social activities with family, friends, neighbors, or groups?: not at all During the past 4 weeks, how much bodily pain have you generally had?: very mild pain During the past 4 weeks, was someone available to help you if you needed & wanted help?: yes, as much as I wanted During the past 4 weeks, what was the hardest physical activity you could do for at least 2 minutes?: very heavy Can you get to places out of walking distance without help? (For eg., can you travel alone on buses, taxis or drive your car?): Yes Can you go shopping for groceries or clothes without someone's help?: Yes Can you prepare your own meals?: Yes Can you do your housework without help?: Yes Because of any health problems, do you need the help of another person with your personal care needs such as eating, bathing, dressing or getting around the house?: No Can you handle your own money without help?: Yes During the past 4 weeks, how would you rate your health in general?: very good During the past 4 weeks how have things been going for you?: very well; could hardly better Are you having difficulties driving your car?: no Do you always fasten your seat belt when you are in a car?: yes, usually During past 4 weeks, have you been bothered by the following: never: Falling or dizzy when standing up, Trouble eating well? and Problems using the telephone?, seldom: Sexual problems? and Teeth or denture problems? and sometimes: Tiredness or fatigue? Have you fallen 2 or more times in the past year?: No Are you afraid of falling?: No Are you a smoker?: no During the past 4 weeks, how many drinks of wine, beer, or other alcoholic beverages did you have?: 1 drink or less per week Do you exercise for about 20 minutes 3 or more times a week?: yes, most of the time Have you been given information to help with the following?: no: Hazards in your house that might hurt you? and no: Keeping track of your medications? How often do you have trouble taking medicines the way you have been told to take them?: I always take medicine as prescribed How confident are you that you can control & manage most of your health problems?: very confident What is your race?: White Mini Mental State Exam (MMSE) Orientation What is the (year) (season) (date) (day) (month)?: year, season, date, day and month Where are we (state) (county) (town or city) (hospital) (floor)?: state, county, town or city, hospital/clinic and floor Registration Name of 3 unrelated objects clearly and slowly, then ask patient to repeat all 3 of them. (1st repeat determines score. Make sure they can repeat all three): object 1, object 2 and object 3 Attention & Calculation (CHOOSE ONE) Spell WORLD backwards (DLROW): 5 letters Recall Ask patient to repeat the 3 items from question #3.: object 1, object 2 and object 3 Language Show patient a wristwatch & ask what it is. Repeat for pencil.: watch and pencil Ask the patient to repeat the phrase 'No ifs, ands, or buts' after you.: correct Ask the patient to 'take a piece of paper with their right hand' 'fold paper in half' 'place paper on floor': take paper in right hand, fold paper in half and place paper on floor Print the sentence 'CLOSE YOUR EYES' on a piece. If patient actually closes eyes then score.: followed written direction Give patient a blank piece of paper & ask to write a sentence. Score if it contains a noun & verb.: sentence contains subject and verb Score Score: 29 Activity of Daily Living Bathing - sponge bath, tub bath or shower: receives no assistance (gets in/out by self, if usual bathing means Dressing - getting clothes from closets & drawers, including inner/outer garments & fasteners.: gets clothes & gets completely dressed without help Toileting - going to the 'toilet room' for urine/bowel elimination & cleaning self/arranging clothes: goes to toilet room, cleans self, arranges clothes without help Transfer: moves in & out of bed and chair without help (may use support object) Continence: controls urination/bowel movements completely by self Feeding: feeds self without help Total Score: 0 Information obtained from: patient Using telephone: independent Traveling: independent Shopping: independent Preparing meals: independent Housework: independent Taking medicine: independent Managing money: independent PHQ-9 Over the last 2 weeks, how often have you been bothered by any of the following problems? 1. Little interest or pleasure in doing things: not at all 2. Feeling down, depressed, or hopeless: not at all 3. Trouble falling or staying asleep, or sleeping too much: not at all 4. Feeling tired or having little energy: not at all 5. Poor appetite or overeating: not at all 6. Feeling bad about yourself - or that you are a failure or have let yourself or your family down: not at all 7. Trouble concentrating on things, such as reading the newspaper or watching television: not at all 8. Moving or speaking so slowly that other people could have noticed. Or the opposite - being so fidgety or restless that you have been moving around a lot more than usual: not at all 9. Thoughts that you would be better off or of hurting yourself in some way: not at all Total score: 0 Depression Screening Interpretation: Negative Depression Screening Done: Yes 46744 - PHQ-9 Billing: Yes Source: Developed by Drs. Edgard Farfan, Gabby Ocasio, Tao Calvillo and colleagues, with an educational key from [employer]. Review of Systems Const All systems reviewed & are unremarkable except as noted in HPI and below Reports no additional complaints Eyes Reports no additional complaints ENT Reports no additional complaints Card Reports no additional complaints Resp Reports no additional complaints GI Reports no additional complaints Reports no additional complaints Musc Reports no additional complaints Physical Exam Vital Signs: Last Vital Signs Pulse 87 12/07/23 08:49 BP 122/76 12/07/23 08:49 Pulse Ox 98 12/07/23 08:49 Oxygen Delivery Method Room Air 12/07/23 08:49 BMI result Body Mass Index 23.8 Const General: no acute distress HEENT Head: Yes normal to inspection Ears: hearing grossly normal bilaterally General nose exam: Normal external nose present Face and sinus: Yes normal facial exam Mouth: oropharynx normal Throat: Yes posterior oropharynx normal Eyes General: appearance normal, both eyes and all related structures Neck Neck: Yes no lymphadenopathy and Yes supple Resp Effort & Inspection: normal respiratory effort Auscultation: clear to auscultation bilaterally Cardio Rhythm: regular rhythm Heart sounds: S1 normal heart sound present and S2 normal heart sound present GI Inspection: Yes normal to inspection Palpation (GI): Soft to palpation Percussion: Yes normal to percussion Auscultation: normal bowel sounds Extrem General: Yes no clubbing, cyanosis or edema Assessment & Plan Assessment & Plan (1) H/O colonoscopy: Comment: 12/2018, hx of polyps, Q [address] Gage 11/2022 [facility] Code(s): Z98.890 - Other specified postprocedural states Plan: f/u GI (2) Tobacco dependence: Comment: quit 07/2020 CT lung screen [facility] annually 03/2020, 04/20 Code(s): F17.200 - Nicotine dependence, unspecified, uncomplicated Plan: f/u lung ca screening (3) Annual physical exam: Code(s): Z00.00 - Encounter for general adult medical examination without abnormal findings Plan: Well-balanced diet regular physical activity discussed with the patient. She is up-to-date with the mammogram (4) Postmenopausal: Comment: DEXA 02/16 OSTEOPENIA Code(s): Z78.0 - Asymptomatic menopausal state Plan: Continue vitamin-D and weight-bearing exercises Orders: Orders Complete Blood Count Auto Diff 1 Year E53.8 - Deficiency of other specified B group vitamins, E55.9 - Vitamin D deficiency, unspecified, Z00.00 - Encounter for general adult medical examination without abnormal findings Lipid Panel 1 Year E53.8 - Deficiency of other specified B group vitamins, E55.9 - Vitamin D deficiency, unspecified, Z00.00 - Encounter for general adult medical examination without abnormal findings UA w Microscopic 1 Year E53.8 - Deficiency of other specified B group vitamins, E55.9 - Vitamin D deficiency, unspecified, Z00.00 - Encounter for general adult medical examination without abnormal findings Comprehensive [place]. Panel Fast 1 Year E53.8 - Deficiency of other specified B group vitamins, E55.9 - Vitamin D deficiency, unspecified, Z00.00 - Encounter for general adult medical examination without abnormal findings Vitamin B12 and Folate 1 Year E53.8 - Deficiency of other specified B group vitamins, E55.9 - Vitamin D deficiency, unspecified, Z00.00 - Encounter for general adult medical examination without abnormal findings Vitamin D 25-OH Total 1 Year E53.8 - Deficiency of other specified B group vitamins, E55.9 - Vitamin D deficiency, unspecified, Z00.00 - Encounter for general adult medical examination without abnormal findings Quality Reporting (2019) Depression/Bipolar (159/160/161/177) PHQ-9: Total score: 0 Coding Level of Care Code Medicare Subsequent (G0439) Diagnoses H/O colonoscopy Z98.890 Tobacco dependence F17.200 Annual physical exam Z00.00 Postmenopausal Z78.0 CPT Codes Advance Care Planning - Time spent: 1-15 minutes, not on file ([id number]) Advance Care Planning Advance Care Planning discussion: Exists, not on file Forms completed: Health Care Proxy Time spent: 1-15 minutes, not on file Did not discuss due to Cultural/Spiritual beliefs: Yes
== END 2023-12-07 09:18 | disposition home or self-care (01) ==
PROVIDERS: PCP Internal Medicine; Visit Provider Internal Medicine
DX: Z00.00 Encounter for general adult medical examination without abnormal findings (principal); Z98.890 Other specified postprocedural states; F17.200 Nicotine dependence, unspecified, uncomplicated; Z78.0 Asymptomatic menopausal state

== ENCOUNTER → 2023-12-07 08:46 | Outpatient (BNVA) | payer MEDICARE, OTHER, SELFPAY | PROVIDERS: PCP Internal Medicine; Visit Provider Internal Medicine ==

== ENCOUNTER 2023-12-27 12:10 | Outpatient (AMB) | payer MEDICARE, OTHER, SELFPAY ==
[2023-12-27 12:18] VITALS: BP 124/76; PULSE 94; O2SAT 97; BMI 23.8
--- NOTE | 2023-12-27 12:18 | MHC.PC.OV ---
Vital Signs 12/27/23 12:18 Height 5 ft 5 in Weight 143 lb 4 oz BMI 23.8 BP 124/76 Blood Pressure Location Rt brachial Position Sitting Pulse 94 Pulse Source Pulse Oximeter Pulse Oximetry (%) 97 Oxygen Delivery Method Room Air Intake Visit Reasons: hematuria, voiding difficulty Allergies latex Allergy (Verified 12/27/23 12:21) eyes swelling Medication List - Last Reconciled 12/27/23 by Lizzy Lockett MD ascorbic acid (vitamin C) 500 mg PO DAILY betamethasone, augmented 0.05 % 1 appl topical DAILY cholecalciferol (vitamin D3) 25 mcg PO DAILY cyanocobalamin (vitamin B-12) 2,500 mcg PO DAILY krill rba-awlmgxhysd-defkcujqu 353 mg (M[facility]) 1 cap PO DAILY pantoprazole 20 mg PO QAM 90 days Tobacco use date assessed: 12/27/23 Fall risk assessment: No Falls in past year Last assessed Fall Risk: 12/27/23 Dental Screening Dental Screen Date: 12/27/23 Did you have a dental visit in the last 12 months?: Yes Did you have a dental problem in the last 6 months where you did not have access to dental care?: No Was dental information given to patient?: Patient has dentist HPI hematuria, voiding difficulty HPI Details Pt c/o increase urinary frequency, urgency, difficulty emptying bladder, LBP for 3 days. Patient denies fever chills nausea vomiting. She passed a small blood clot yesterday but not today. [facility] Medical History (Updated 12/27/23 @ 12:50 by Lizzy Lockett MD) Acid reflux Vitamin D deficiency Annual physical exam Postmenopausal Normal breast exam Glaucoma Tobacco dependence Vocal cord polyps Surgical History History of esophagogastroduodenoscopy (EGD) History of repair of vocal cord H/O colonoscopy Family History Father No problems noted. 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, Housing: House Alcohol intake: current Alcohol intake frequency: a few times a week Alcohol type: wine Patient Tobacco Use Status: Former Tobacco user Years Smoked: 50 yrs e-Cigarette/Vaping Use: Never Used service: No Current occupational status: retired Cognitive needs: No Hearing needs: No Vision needs: Yes Questionnaire Thrive Questionnaire Date Thrive assessed: 12/27/23 I am a: Patient What is your living situation today?: I have a steady place to live Within the past 12 months, did the food you bought not last and you didn't have the money to get more?: Never true Within the past 12 months, did you worry whether your food would run out before you got money to buy more?: Never true Do you have trouble paying for medicines?: No Do you have trouble getting transportation to medical appointments?: No Do you have trouble paying your heating and electricity bill?: No Do you have trouble taking care of your child, family member or friend?: No Do you have trouble with day-to-day activities such as bathing, preparing meals, shopping, managing finances, etc.?: No Are you currently unemployed and looking for a job?: No Are you interested in more education?: No Please select the resources that you would like help with: None Currently or been in a relationship where the following occur: No concerns reported THRIVE Score: 0 AUDIT C Alcohol Use Questionnaire (AUDIT-C) 1. How often do you have a drink containing alcohol?: 2-4 times a month 2. How many drinks containing alcohol do you have on a typical day when you are drinking?: 1 or 2 3. How often do you have six or more drinks on one occasion?: Never Total Score: 2 Score Reviewed/Action Taken: Yes TELLY-7 AMB Questionnaire TELLY-7 Date TELLY - 7 assessed: 12/27/23 Feeling nervous, anxious, or on edge: 0 = Not at all Not being able to stop or control worryin = Not at all Worrying too much about different things: 0 = Not at all Trouble relaxin = Not at all Being so restless that it is hard to sit still: 0 = Not at all Becoming easily annoyed or irritable: 0 = Not at all Feeling afraid as if something awful might happen: 0 = Not at all Total TELLY-7 score (0-4 normal; 5-9 mild; 10-14 moderate; 15-21 severe): 0 Source: Developed by Drs. Edgard Farfan, Gabby Ocasio, Tao Calvillo and colleagues, with an educational key from [employer]. TELLY-7 Assessment Billing TELLY-7 Assessment Tool: TELLY-7 Assessment 99388 Review of Systems Const All systems reviewed & are unremarkable except as noted in HPI and below Card Reports no additional complaints Resp Reports no additional complaints GI Reports no additional complaints Reports no additional complaints Physical exam (Primary Care) Vital Signs: Last Vital Signs Pulse 94 12/27/23 12:18 BP 124/76 12/27/23 12:18 Pulse Ox 97 12/27/23 12:18 Oxygen Delivery Method Room Air 12/27/23 12:18 BMI result Body Mass Index 23.8 Tobacco/Smoking Status: Tobacco use Status Tobacco use date assessed 12/27/23 12/27/23 12:22 Patient Tobacco Use Status Former Tobacco user 12/27/23 12:22 e-Cigarette/Vaping Use Never Used 12/27/23 12:22 Thrive Assessment: Date of Thrive Assessment Date Thrive assessed 12/27/23 12/27/23 12:22 Currently or been in a relationship where the following occur: No concerns reported Const General: no acute distress HENMT Head: Yes normal to inspection Mouth: Normal oral and palatal mucosa present Throat: Yes posterior oropharynx normal Neck Neck: Yes no lymphadenopathy and Yes supple Resp Effort & Inspection: normal respiratory effort Auscultation: clear to auscultation bilaterally Cardio Rhythm: regular rhythm Heart sounds: S1 normal heart sound present and S2 normal heart sound present GI Other: Left CVA tenderness Inspection: Yes normal to inspection Palpation (GI): Soft to palpation and Tenderness to palpation present (GI) suprapubicly; with no rebound tenderness Percussion: Yes normal to percussion Auscultation: normal bowel sounds Coding Level of Care Code Est Pt Level 3 (70325) Diagnoses Increased frequency of urination R35.0 Hematuria R31.9 Additional Codes TELLY-7 Assessment Billing - TELLY-7 Assessment Tool: TELLY-7 Assessment 69249 ([id number]) Assessment & Plan Assessment & Plan (1) Increased frequency of urination: Code(s): R35.0 - Frequency of micturition Category: Medical Plan: Urine dipstick is positive for leukocytes and RBCs, Bactrim double strength b.i.d. for 7 days is prescribed pending urine culture. Bladder and renal ultrasound will be obtained. try Flomax (2) Hematuria: Code(s): R31.9 - Hematuria, unspecified Category: Medical Plan: As above Orders: Orders Urine Culture Today R31.9 - Hematuria, unspecified, R35.0 - Frequency of micturition US bladder Today R31.9 - Hematuria, unspecified, R35.0 - Frequency of micturition US renal BI Today R31.9 - Hematuria, unspecified, R35.0 - Frequency of micturition UA w Microscopic Today R31.9 - Hematuria, unspecified, R35.0 - Frequency of micturition Medications: New tamsulosin (Flomax) 0.4 mg PO BEDTIME 20 caps 0RF sulfamethoxazole-trimethoprim 800-160 mg (Bactrim DS) 1 tab PO BID 14 tabs 0RF
== END 2023-12-27 13:48 | disposition home or self-care (01) ==
LOC: HO.HMCC 12:11
PROVIDERS: PCP Internal Medicine; Visit Provider Internal Medicine
DX: R35.0 Frequency of micturition (principal); R31.9 Hematuria, unspecified

== ENCOUNTER 2023-12-27 12:10 | Outpatient (REF) | payer MEDICARE, OTHER, SELFPAY | END 2023-12-27 12:11 | disposition home or self-care (01) | LOC: HO.LAB 12:10 | PROVIDERS: PCP Internal Medicine; Visit Provider Internal Medicine | DX: Z13.89 Encounter for screening for other disorder (principal) | CPT/HCPCS: 87086; 96127; 99212 ==

== ENCOUNTER 2023-12-27 13:12 | Outpatient (REF) | payer MEDICARE, OTHER, SELFPAY ==
--- NOTE | ~2023-12-27 | US_ITS ---
EXAMINATION: US RETROPERITONEAL LIMITED (RENAL ONLY) CLINICAL INFORMATION: Hematuria, unspecified. COMPARISON: None available. TECHNIQUE: Real-time examination. FINDINGS: RIGHT KIDNEY: 9.8 x 3.8 x 5.5 cm (SAG x AP x TRV). The kidney is normal in size, contour, and echogenicity. Renal cortical thickness is normal. No calculi or focal parenchymal lesions. No hydronephrosis. LEFT KIDNEY: 10.4 x 5.2 x 5.7 cm (SAG x AP x TRV). The kidney is normal in size, contour, and echogenicity. Renal cortical thickness is normal. No calculi or focal parenchymal lesions. No hydronephrosis. US/US renal BI IMPRESSION: Unremarkable renal ultrasound examination. Electronically signed by: Fede Ayon MD 12/28/2023 10:36 AM EDT
== END 2023-12-27 13:13 | disposition home or self-care (01) ==
LOC: HO.HMGCX 13:12
PROVIDERS: PCP Internal Medicine; Visit Provider Internal Medicine
DX: R31.9 Hematuria, unspecified (principal); R35.0 Frequency of micturition; R39.15 Urgency of urination; M54.50 Low back pain, unspecified
CPT/HCPCS: 76775; 87086; 87088; 87186; 96127; 99212

== ENCOUNTER 2023-12-28 10:47 | Outpatient (REF) | payer MEDICARE, OTHER, SELFPAY ==
--- NOTE | ~2023-12-28 | US_ITS ---
EXAMINATION: US PELVIS LIMITED (BLADDER) CLINICAL INFORMATION: Frequency of micturition. COMPARISON: None available. TECHNIQUE: Real-time imaging of the bladder. FINDINGS: BLADDER: Well distended. Bilateral ureteral jets are demonstrated. Prevoid bladder volume is 571 mL. Postvoid bladder volume is 19 mL. US/US bladder IMPRESSION: Unremarkable sonographic evaluation of the urinary bladder. Electronically signed by: Tyler Harkins MD 12/28/2023 01:02 PM EDT
== END 2023-12-28 10:48 | disposition home or self-care (01) ==
LOC: HO.HMGCX 10:47
PROVIDERS: PCP Internal Medicine; Visit Provider Internal Medicine
DX: R35.0 Frequency of micturition (principal); R31.9 Hematuria, unspecified
CPT/HCPCS: 76857

== ENCOUNTER 2024-10-01 08:33 | Outpatient (AMB) | payer MEDICARE, OTHER, SELFPAY ==
--- OUTSIDE RECORDS SUMMARY | 2024-10-01 08:44 | XMS_ITS | Clinical Summary ---
Author Organization [facility] Address [address] [place] [id number] Phone Care Team Providers Care Supervisor Frame Sample And Pattern Name Role Phone Lizzy Lockett MD Primary Care Provider [phone] Allergies Active Allergy Reactions Criticality Noted Date Comments Codeine 06/08/2021 Other Reaction(s): headache Latex 06/08/2021 Other Reaction(s): eyes weep Ragweed Pollen Wheezing 06/08/2021 Other Reaction(s): Runny nose Medications betamethasone, augmented, (DIPROLENE) 0.05 % ointment Apply topically. 10/13/2023 Active DOCOSAHEXAENOIC ACID ORAL Take 1,000 mg by mouth. Active Family History Relation Status Comments Brother Alive Father Mother Sister 1 Alive Sister 2 Alive Sister 3 Alive Social History Tobacco Use Types Packs/Day Years Used Date Smoking Tobacco: Former Cigarettes Smokeless Tobacco: Never Tobacco Cessation:Counseling Given: Not Answered Comments:Quit 3 years ago Alcohol Use Standard Drinks/Week Comments Yes 0 (1 standard drink = 0.6 oz pur e alcohol) Education Answer Date Recorded Are you interested in more education? Not on consuelo e 11/06/2023 Are you concerned about learning? Not on file 11/06/2023 No 11/06/2023 No 11/06/2023 Digital Access Answer Date Recorded No 11/06/2023 No 11/06/2023 Reliable internet access at home? Not on file 11/06/2023 Device with a working camera? Not on file Comments No Sex and Gender Information Value Date Recorded Sex Assigned at Female 11/12/2023 1:33 PM EDT Legal Sex Female 1:22 PM EDT Gender Identity Female 11/12/2023 1:33 PM EDT Sexual Orientation Not on file Last Filed Vital Signs Vital Sign Reading Time Taken Comments Blood Pressure 110/58 01/05/2024 1:47 PM EST Pulse - - Temperature - - Respiratory Rate - - Oxygen Saturation - - Inhaled Oxygen Concentration - - Weight 64.9 kg (143 lb) 01/05/2024 1:47 PM EST Height - - Body Mass Index - - Plan of Treatment Health Maintenance Due Date Last Done Comments LIPID PANEL 1955 DEPRESSION SCREENING 1967 SMOKING Hx and SMOKELESS TOBACCO SCREENING 09/30/1968 HEPATITIS C SCREENING 09/30/1973 MAMMOGRAM 1995 COLOGUARD 09/30/2000 COLONOSCOPY 09/30/2000 COLORECTAL CANCER SCREENING 09/30/2000 FIT TEST 09/30/2000 FOBT 09/30/2000 SIGMOIDOSCOPY 09/30/2000 VIRTUAL COLONOSCOPY 09/30/2000 PNEUMOCOCCAL VACCINES (50+ years) (1 of 1 - PCV) 09/30/2005 OSTEOPOROSIS SCREENING INITIAL (ONE-TIME) 09/30/2020 COVID-19 VACCINE ( season) 2024 01/19/2024, 07/13/2023, 12/19/2022, Additional history exists RSV VACCINE (1 - 1-dose 75+ series) 09/30/2030 Adult Td,Tdap Booster 05/22/2033 05/23/2023 , 12/13/2013, 11/02/2005 ZOSTER VACCINES Completed 06/30/2022, 04/28/2022 HEPATITIS A VACCINES Aged Out No long er eligible based on patient's age to complete this topic HIB VACCINES Aged Out No longer eligi ble based on patient's age to complete this topic MENINGOCOCCAL VACCINES (ACWY) Aged Out No longer eligible based on patient's age to complete this topic MENINGOCOCCAL VACCINES (B) Aged Out N o longer eligible based on patient's age to complete this topic Medical Devices Not on file Insurance MEDICARE PART A & B [facility] MEDICARE SUPPLEMENT MEDICARE PART A & B [employer] MEDICARE SUPPLEMENT MEDICARE PART A & B Member Subscriber Plan / Payer (Ef fective 2020-) Name:Jamaica Schultz Member ID:[id number] Relation to Subscriber:Self Name:Jamaica Schultz Subscriber ID:[id number] Payer ID:[id number] Group ID:Not on file Type:Medicare Address: Debitos [facility] [address] [address] [facility] MEDICARE SUPPLEMENT MEDICARE PART A & B [facility] EXT[employer]ION MEDICARE SUPPLEMENT MEDICARE PART A & B [facility] [employer] MEDICARE SUPPLEMENT MEDICARE PART A & B [facility] [employer] MEDICARE SUPPLEMENT Care Teams Supervisor Frame Sample And Pattern Relationship Specialty Start Date End Date Lizzy Lockett MD [address] [place] [address] PCP - General Internal Medicine 09/18/23 Additional Source Comments The information contained in this document represents components of the legal health record. It is not the complete legal health record.[facility]
--- OUTSIDE RECORDS SUMMARY | 2024-10-01 08:44 | XMS_ITS | Patient Health Record ---
Author Organization [facility] marissa Ridott Address [address] [place] [address] Care Team Providers Care Assault Boat Coxswain Name Role Phone Lizzy Lockett MD Primary Care Provider Unavaila ble Black, Madalyn Unavailable [phone] Allergies Allergen (clinical drug ingredient) Drug/Non Drug Allergy documented on EMR Reaction Allergy Type Onset Date Status codeine Codeine headache Drug Allergy Active Latex Latex eyes weep Allergy Active Reason For Referral No Information Medications Medication SIG (Take, Route, Frequency, Duration) Notes Start Date End Date Status Betamethasone Dipropionate 0.05 % 1 application Externally Once a day 09/11/2024 Active Betamethasone Dipropionate 0.05 % 1 application Externally Once a day Active Urea 40 % 1 application to aff ected area on feet Externally Twice a day; Duration: 30 days 09/11/2024 Active Pantoprazole Sodium 20 MG 1 tablet 1/2 t o 1 hour before morning meal Orally Once a day Active Immunizations Vaccine Route Administration Date Status Comme nts Influenza Unknown 11/01/2023 Administered Social History Tobacco Use: Social History Observation Description Date Details (start date - stop date) Former Smoker NA - NA Tobacco use other than smoking: Question Answer Notes Are you an other tobacco user? No Tobacco Control (Standard) Question Answer Notes Tobacco use: Former smoker Additional Findings: Tobacco non-user Current no nsmoker AUDIT-C (Standard) Question Answer Notes Did you have a drink containing alcohol in the p ast year? 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 [facility] [address] [place] [address] 08/06/2024 [facility] [address] [place] [phone] 09/11/2024 Madalyn Reyes Assessments Encounter Date Diagnosis (ICD Code) Assessment Notes Treatment Notes Treatment Clinical Notes Section Notes 09/11/2024 Onychomycosis (ICD-10 - B35.1) EBM Medical prescription ordered and faxed 09/11/2024 Nummular eczematous dermatitis (ICD-10 - L30.0) 09/11/2024 Pain in right toe(s) (ICD-10 - M79.674) 09/11/2024 Pain in left toe(s) (ICD-10 - M79.675) 09/11/2024 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) Plan Of Treatment Pending Test Test Name Order Date [id number] NAIL, 6 OR MORE 06/02/2021 Next Appt Details Provider Name:Madalyn Reyes , 10/11/2024 09:00:00 AM, [address] [facility], [place], [address], Insurance Providers Payer Name Payer Address Payer Phone Subscriber Number Group Number Insured Name Patient Relationship to Insured Coverage Start Date Coverage End Date Medicare [facility] [employer] [address] [place] [phone] [id number] [place] Schultz Self - patient is the insured Felicia ([facility]) [address] [place] [address] [id number] [place] Schultz Self - patient is the insured Medical (General) History Medical History History ICD Code asthma Chicken pox Psoriasis/eczema Sinus conditions Reflux (GERD) Surgical History Surgery Date(Month/Year) Evelyn singh 08/20/2020 Sinus Surgery 01/2013
--- OUTSIDE RECORDS SUMMARY | 2024-10-01 08:44 | XMS_ITS | Clinical Summary ---
Author Organization [facility] Address [address] [facility] [address] [place] [address] Care Team Providers Care Managing Consultant Name Role Phone Lizzy Lockett MD Unavailable [phone] No, Pcp Primary Care Provider Unavailabl e Allergies Active Allergy Reactions Criticality Noted Date Comments Codeine 06/08/2021 Latex 06/08/2021 Ragweed Pollen Runny nose,Wheezing 06/08/2021 Medications vitamin B complex (VITAMINS B COMPLEX ORAL) Vitamins B,C,D Active omega-3 (Fish Oil) 300-1,000 mg capsule Take 1,000 mg by mouth in the morning. Active Active Problems No known active problems Family History Medical History Relation Name Comments Hypertension Brother Cancer Mother Relation Name Status Comments Brother Mother Social History Tobacco Use Types Packs/Day Years Used Date Smoking Tobacco: Former Smokeless Tobacco: Former Comments Unknown Sex and Gender Information Value Date Recorded Sex Assigned at Not on file Legal Sex Female 8:19 AM EST Gender Identity Not on file Sexual Orientation Not on file Plan of Treatment Health Maintenance Due Date Last Done Comments Bone Density Scan 1955 CT Colonography 1955 Colonoscopy 1955 Colorectal Cancer Screening 1955 FIT-DNA 1955 FIT 1955 FOBT 1955 Sigmoidoscopy 1955 Mammogram 1995 Pneumococcal Vaccine: 50+ Years (1 of 1 - PCV) 09/30/2005 Zoster Vaccines (1 of 2) 09/30/2005 COVID-19 Vaccine ( season) 2023 12/17/2020, 06/12/2020, 05/22/2020 DTaP/Tdap/Td Vaccines (2 - Td or Tdap) 12/14/2023 12/13/2013, 11/02/2005 Depression Screening 02/28/2024 Influenza Vaccine (#1) 2024 , 10/30/2019, 11/13/2018, Additional history exists HIB Vaccines Aged Out No longer eligi ble based on patient's age to complete this topic HPV Vaccines Aged Out No longer eligi ble based on patient's age to complete this topic Hepatitis A Vaccines Aged Out No long er eligible based on patient's age to complete this topic Hepatitis B Vaccines Aged Out No long er eligible based on patient's age to complete this topic IPV Vaccines Aged Out No longer eligi ble based on patient's age to complete this topic Meningococcal B Vaccine Aged Out No l onger eligible based on patient's age to complete this topic Meningococcal Vaccine Aged Out No lakisha robert eligible based on patient's age to complete this topic Rotavirus Vaccines Aged Out No longer eligible based on patient's age to complete this topic Insurance MEDICARE PART A AND B [facility] Care Teams Managing Consultant Relationship Specialty Start Date End Date No, Pcp, PCP - General Internal Medicine 06/08/21 Lizzy Lockett MD [address] [place] [id number] Referring Physician Side Guider 06/08/21
--- NOTE | 2024-10-01 08:49 | MHC.OFFVIS ---
Vital Signs 10/01/24 08:50 Height 5 ft 5 in Weight 142 lb BMI 23.6 BP 119/63 Blood Pressure Location Lt brachial Position Sitting Pulse 62 Pulse Oximetry (%) 98 Oxygen Delivery Method Room Air Intake Visit Reasons: gretchen pt f/u Esophagitis acid reflux Intake Note: Patient complex follow up for Esophagitis acid reflux/Gretchen hicks 03/2023. Patient cc: acid reflex on and off, patient feel her throat tied at nightime. Denies any other GI issues. 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 Last visit with JOSE Sierra 04/18/2023 for acid reflux-switch from omeprazole to pantoprazole 20 mg [place] presents for follow-up regarding GERD, which has been managed with pantoprazole since March 2023. She reports significant symptom relief with pantoprazole when taken regularly and notes the recurrence of burning sensation and upset stomach symptoms when she misses doses for several consecutive days. These symptoms resolve upon restarting the medication. She denies dysphagia, choking, or regurgitation but describes occasional nocturnal pressure sensation localized to the laryngeal region, especially upon waking. Drinking cold water alleviates this pressure. She chews Nicorette gum as part of her smoking cessation and has used it for two years, which she suspects might contribute to her symptoms. Of note, [place] has a distant history of EGD in November 2022, which revealed inflammation in the esophagus, stomach, and duodenum. She also underwent colonoscopy revealing internal hemorrhoids but otherwise normal findings; stool shape concerns have since resolved. She denies abdominal pain, nausea, vomiting, or bloating. Bowel movements are generally daily, normally formed and soft, with rare mild constipation. History of vocal cord polyps (surgically removed) and sinus surgery performed by ENT. She has not shared her nocturnal throat pressure with ENT specialists but plans to follow up given her history. No symptoms of shortness of breath or chest discomfort reported. Patient denies: fever/chills, appetite changes, unintentional wt loss, ab pain or melena/hematochezia. Social hx: -Alcohol Use: Consumes wine (2 glasses/session, 2-3 nights/week). -denies recreational drug use -former smoker, currently uses Nicorette gum for cessation since 2020 - family hx as below PFSH Medical History (Updated 10/01/24 @ 12:57 by Geno Esteban CNP) Acid reflux Vitamin D deficiency Annual physical exam Postmenopausal Normal breast exam Glaucoma Tobacco dependence Vocal cord polyps Surgical History (Updated 10/01/24 @ 09:36 by Geno Esteban CNP) History of vocal cord polypectomy History of esophagogastroduodenoscopy (EGD) History of repair of vocal cord H/O colonoscopy Family History Father No problems noted. 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, Housing: House Alcohol intake: current Alcohol intake frequency: a few times a week Alcohol type: wine Patient Tobacco Use Status: Former Tobacco user Years Smoked: 50 yrs e-Cigarette/Vaping Use: Never Used service: No Current occupational status: retired Cognitive needs: No Hearing needs: No Vision needs: Yes Review of Systems Const Reports as per HPI ENT Reports as per HPI Card Reports as per HPI Resp Reports as per HPI GI Reports as per HPI Reports as per HPI Physical Exam Vital Signs: Last Vital Signs Pulse 62 10/01/24 08:50 BP 119/63 10/01/24 08:50 Pulse Ox 98 10/01/24 08:50 Oxygen Delivery Method Room Air 10/01/24 08:50 BMI result Body Mass Index 23.6 Const General: healthy appearing, no acute distress and well developed Nutritional Appearance: average body habitus Orientation/consciousness: patient oriented x3 HEENT Head: Yes normal to inspection, Yes normocephalic and Yes atraumatic Face and sinus: Yes normal facial exam Mouth: Normal oral and palatal mucosa present, oropharynx normal and moist mucous membranes Throat: Yes posterior oropharynx normal and Yes uvula midline Eyes General: appearance normal, both eyes and all related structures Neck Neck: Yes normal visual inspection and Yes no lymphadenopathy Lymphatic: no lymphadenopathy noted Resp Effort & Inspection: normal respiratory effort, able to speak in complete sentences, no tracheal deviation and symmetric chest movement Auscultation: clear to auscultation bilaterally Cardio Jugular venous distension: no JVD Rate: regular rate Rhythm: regular rhythm Heart sounds: S1 normal heart sound present, S2 normal heart sound present, no gallops and no murmurs GI Inspection: Yes normal to inspection and No distended Palpation (GI): Soft to palpation, not firm, nontender and No hepatosplenomegaly present Auscultation: normal bowel sounds Neuro General: patient oriented x3 Gait exam (Neuro): Normal gait present Psych Appearance: grossly normal Mental Status: mental status grossly normal Speech and movement: Normal speech and movement present Affect: normal affect Attitude: cooperative Thought process: Normal thought process present Thought content: Normal thought content present Insight: Good insight present (Psych) Judgement: Good judgement present (Psych) Results Reviewed Results Reviewed: Date of Service: 01/04/23 Procedure(s): NM gastric emptying study Accession Number(s): [id number] cc: Lizzy Lockett MD; Gretchen Holguin PA-C~ EXAMINATION: RADIONUCLIDE SOLID FOOD GASTRIC EMPTYING 4-HOUR STUDY CLINICAL INFORMATION: Early satiety. COMPARISON: No previous gastric emptying study is available for comparison. TECHNIQUE: A standard meal consisting of 4 oz of Egg Beaters brand equivalent tagged with 1.0 mCi Tc-99m Sulfur Colloid, 8 oz water and 2 slices of toast with jelly was administered orally to the patient. Images were obtained using a dual head gamma camera in the anterior and posterior projections over of the stomach immediately post ingestion and at hourly intervals up to 4 hours post ingestion. The anterior and posterior counts at each time interval were averaged using the geometric mean and expressed as percentage of the immediate post ingestion counts. FINDINGS: There is good visualization of activity in the stomach immediately post ingestion. As the study progresses, there is good clearance of activity from the stomach and visualization of progressively increasing small bowel activity. By the end of the study, there is almost no retention noted in the stomach. Retention in the stomach at each time interval was: 1 hour 69% (normal 37%-90%) 2 hours 35% (normal 30%-60%) 3 hours 15% 4 hours 9% (normal 0%-10%) NM/NM gastric emptying study IMPRESSION: Normal 4-hour solid food gastric emptying study. Gastric emptying study grading per JNMT Consensus Recommendations in 2008: https://tech.snmjournals.org/content/3644 Grade 1 (mild retention): 11-20% at 4 hours Grade 2 (moderate retention): 21-35% at 4 hours Grade 3 (severe retention): 36-50% at 4 hours Grade 4 (very severe retention): >50% retention at 4 hours Operative Note Date of Service: 11/29/22 Procedure Description: EGD, Colonoscopy FLEXIBLE TRANSORAL UPPER GASTROINTESTINAL ENDOSCOPY AND COLONOSCOPY PROCEDURE NOTE UPPER ENDOSCOPY Procedure: The patient was placed in the left lateral decubitis position and pre-procedure medications were administered and a bite block was placed. The endoscope was inserted into the mouth and advanced under direct vision to the third part of duodenum. A careful inspection was made as the upper endoscope was withdrawn including a retroflexed examination of the proximal stomach; Findings and interventions are described below. Findings: Larynx:normal Esophagus: GE junction at 40 cm, diaphragm hiatus at 40 cm, MILD ESOPHAGITIS At GEJ, bx taken from here and distal,proximal esophagus, balloon dilation done at LES and UES to 20 mm with superficial tear noted at UES Stomach: Patchy erythema. Biopsies were obtained. Grade 2 flap valve on retroflexed examination of the cardia. Lack of peristalsis noted. Duodenum: Bulbar duodenitis, bx taken Intervention: Biopsies as noted above, balloon dilation COLONOSCOPY Procedure: The patient was placed in the left lateral decubitis position and pre-procedure medications were administered. After a digital rectal examination of the ano-rectum, the video colonoscope was inserted into the rectum and advanced through the colon to the cecum/TI. The colonoscope was slowly withdrawn in a retrograde panoramic fashion and the colon mucosa was carefully examined including a retroflexed view of the rectum. Findings and interventions are described below. Procedure Difficulty:moderate with tortuous colon Findings: Terminal Ileum-normal Cecum:normal Ascending Colon: normal Transverse Colon -normal Descending Colon:normal Sigmoid Colon: normal Rectum: Retroflexion with medium sized internal hemorrhoids, grade I Anorectum - normal Colon preparation: Ferdinand Bowel Preparation Scale Right colon; 2 Transverse colon: 2 Left colon; 2 Impression and Post Procedure Diagnosis: Endoscopy Findings: possible gastroparesis esophagitis gastritis duodenitis Colonoscopy Findings: internal hemorrhoids Plan: Await Pathology results Repeat Colonoscopy in 10 years or earlier if clinically indicated High fiber diet leaflet avoid straining at stool, epsom salts and sitz bath, anusol supps or cream if not taking PPI can consider, if H pylori pos then treat magic mouthwash for post op throat pain , ok to take tylenol can consider GES if suspicion for gastroparesis Assessment & Plan Assessment & Plan (1) Acid reflux: Comment: 11/29/22 EGD- possible gastroparesis (normal GES 12/2022), esophagitis, gastritis, duodenitis, balloon dilation done at LES and UES Code(s): K21.9 - Gastro-esophageal reflux disease without esophagitis Category: Medical Qualifiers: Esophagitis presence: with esophagitis Esophagitis bleeding: without hemorrhage Qualified Code(s): K21.00 - Gastro-esophageal reflux disease with esophagitis, without bleeding Plan: Symptom improvement with pantoprazole; history of EGD showing esophageal inflammation. Additional Testing: None indicated at this time. Medication Management: Refill pantoprazole 40mg oral daily with instructions to take 30 minutes before meals on an empty stomach. Lifestyle Recommendations: Monitor dietary triggers, particularly red meat and rich foods, and maintain a journal if symptoms recur. Follow-Up: Offered 6 months. However, [place] prefers to follow up in 1 year, unless new symptoms develop. (2) History of vocal cord polypectomy: Code(s): Z98.890 - Other specified postprocedural states Category: Surgical Plan: No esophageal involvement reported; symptoms localized to larynx. History of vocal cord polyps suggests relevance for ENT evaluation. Additional Testing: Encourage ENT consultation to assess potential underlying causes. If symptoms persist despite ENT evaluation, consider swallow study. Medication Management: No changes. Lifestyle Recommendations: Continue journaling food, beverage, and symptom patterns. Follow-Up: Return sooner than 6 months if ENT workup unyeilding or symptoms worsen. Plan Follow-up one year or sooner as needed Time: I spent a total of 30 minutes on the date of encounter which includes: Preparing to see the patient (reviewed previous documentation, test results and medical history) Performing a medically appropriate exam and/or evaluation Ordering medications, tests, and procedures Documenting clinical information in the health record Medications: Changed From pantoprazole 20 mg PO QAM 90 days 90 tabs 4RF To pantoprazole Take on tablet daily. Best taken on empty stomach and 30 minutes before food 20 mg PO QAM 90 tabs 3RF 90 days Coding Level of Care Code Established Pt Est Pt Level 4 (93439) Patient Type Established Diagnoses Gastroesophageal reflux disease with esophagitis without hemorrhage K21.00 Esophagitis presence: with esophagitis Esophagitis bleeding: without hemorrhage History of vocal cord polypectomy Z98.890
[2024-10-01 08:50] VITALS: BP 119/63; PULSE 62; O2SAT 98; BMI 23.6
== END 2024-10-01 09:23 | disposition home or self-care (01) ==
LOC: HO.HGI 08:34
PROVIDERS: PCP Internal Medicine; Visit Provider Nurse Practitioner Family
DX: K21.00 Gastro-esophageal reflux disease with esophagitis, without bleeding (principal); Z98.890 Other specified postprocedural states
CPT/HCPCS: 99214

== ENCOUNTER → 2024-10-01 08:33 | Outpatient (BNVA) | payer MEDICARE, OTHER, SELFPAY | PROVIDERS: PCP Internal Medicine; Visit Provider Nurse Practitioner Family | DX: K21.00 Gastro-esophageal reflux disease with esophagitis, without bleeding (principal); Z98.890 Other specified postprocedural states | CPT/HCPCS: 99212 ==

== ENCOUNTER 2024-12-02 06:16 | Outpatient (REF) | payer MEDICARE, OTHER, SELFPAY ==
--- OUTSIDE RECORDS SUMMARY | 2024-12-02 06:20 | XMS_ITS | Clinical Summary ---
Author Organization [facility] Address [address] [place] [id number] Phone Care Team Providers Care Centrifugal Supervisor Name Role Phone Lizzy Lockett MD Primary Care Provider [phone] Allergies Active Allergy Reactions Criticality Noted Date [...] PCV) 09/30/2005 OSTEOPOROSIS SCREENING INITIAL (ONE-TIME) 09/30/2020 INFLUENZA VACCINE (#1) 2024 , 11/01/2022, 11/18/2021, Additional history exists COVID-19 VACCINE (2024- season) 2024 01/19/2024, 07/13/2023, 12/19/2022, Additional history [...] file Insurance MEDICARE PART A & B [employer] MEDICARE SUPPLEMENT MEDICARE PART A & B [employer] MEDICARE SUPPLEMENT MEDICARE PART A & B [facility] MEDICARE SUPPLEMENT MEDICARE PART A & B [facility] MEDICARE SUPPLEMENT MEDICARE PART A & B [facility] MEDICARE SUPPLEMENT MEDICARE PART A & B [facility] [employer] MEDICARE SUPPLEMENT Care Teams Centrifugal Supervisor Relationship Specialty Start Date End Date Lizzy Lockett MD [address] [place] [id number] PCP - General Internal Medicine 09/18/23 Additional Source Comments The information contained in this document represents components of the legal health record. It is not the complete legal health record.[facility]
--- OUTSIDE RECORDS SUMMARY | 2024-12-02 06:20 | XMS_ITS | Clinical Summary ---
Author Organization [facility] [address] [facility] Address [address] [place] [address] Phone Care Team Providers Care Sample Driller Name Role Phone Lizzy Lockett MD Primary Care Provider [phone] Encounters Date Type Department Care Team Description 11/18/2024 9:42 AM EDT - 11/18/2024 11:59 PM EDT Hospital Encounter [facility] CT Scan [address] [place] [id number] Pulmonary nodule less than 6 mm determined by computed tomography of lung Discharge Disposition: Home or Self Care 09/26/2024 7:54 AM EDT - 09/26/2024 11:59 PM EDT Hospital Encounter Radiology Department - [address] [address] Encounter for screening mammogram for breast cancer Discharge Disposition: Home or Self Care from Last 3 Months Surgical History Surgery Date Site/Laterality Comments COLONOSCOPY 04/07/2006 PROCEDURE: HISTORICAL COLONOSCOPY; COMMENT: Colon polyp: 1 cm. rectal COLONOSCOPY 08/03/2009 PROCEDURE: [place] COLONOSCOPY STOMA DX INCLUDING COLLJ SPEC SPX; COMMENT: normal; repeat in five years COLONOSCOPY 10/03/2014 PROCEDURE: HISTORICAL COLONOSCOPY; COMMENT: normal; repeat in 5 yrs COLONOSCOPY 01/09/2019 PROCEDURE: HISTORICAL COLONOSCOPY; COMMENT: negative, rpt 5 years OTHER SURGICAL HISTORY PROCEDURE: [place] LARGSC MICRO/TELESCOPE RMVL LES VOCAL CORD GRAFT COLONOSCOPY 2022 PROCEDURE: HISTORICAL COLONOSCOPY; COMMENT: with EGD Medical History Medical History Date Comments Allergic rhinitis 09/28/2007 DX:Allergic rh initis Personal history of colonic polyps 04/05 DX:Personal history of colonic polyps; COMMENT: CN due [address] Murrell. Family History Medical History Relation Name Comments Colon polyps Brother 1 age 50's onset as well Dementia Father age 86 Other: non hodgkins lymphoma Mother Other: hodgkins lymphoma Other cou sin Colon cancer Paternal Grandmother & PGM's sister had colon CA Colon polyps Sister 1 all 3 sisters w polyps age 50's Breast cancer Neg Hx Ovarian cancer Neg Hx Relation Name Status Comments Brother 1 Brother 2 Alive Colon polyps & HTN Father Maternal Grandfather (Age 70's) Lymphoma Mother (Age 70's) Lymphoma Other Paternal Grandmother (Age 50's) Colon CA age onset 50's Sister 1 Sister 2 Alive all 3 with colo n polyps age 55 Uncle (Age 60's) Lymphoma , Maternal side. Social History Tobacco Use Types Packs/Day Years Used Date Smoking Tobacco: Former Cigarettes Q uit: 09/19/2020 Smokeless Tobacco: Never Alcohol Use Standard Drinks/Week Comments Yes 0 (1 standard drink = 0.6 oz pur e alcohol) Comments No Sex and Gender Information Value Date Recorded Sex Assigned at Female 04/30/2024 10:30 AM EST Legal Sex Female 6:32 AM EST Gender Identity Female 04/30/2024 10:30 AM EST Sexual Orientation Not on file Obstetrics History Para Term AB IAB SAB Ectopic Multiple Livin g Live Births 0 0 0 0 Last Filed Vital Signs Vital Sign Reading Time Taken Comments Blood Pressure 113/85 01/03/2023 10:08 AM EST Pulse 69 01/03/2023 10:08 AM EST Temperature - - Respiratory Rate - - Oxygen Saturation - - Inhaled Oxygen Concentration - - Weight 62.7 kg (138 lb 4 oz) 01/03/2023 10:08 AM EST Height 165.1 cm (5' 5 ) 01/03/2023 10:08 AM EST Body Mass Index 23.01 01/03/2023 10:08 AM EST Plan of Treatment Health Maintenance Due Date Last Done Comments Pneumococcal Vaccine: 50+ Years (1 of 1 - PCV) 09/30/2005 Colorectal Cancer Screening: Stool Based Tests (FOBT/FIT) 02/05/2022 Falls Risk Assessment 02/05/2022 Hepatitis C Screening 02/05/2022 Medicare Annual Wellness Visit 02/05/2022 Osteoporosis Screening (Bone Density Screening) 02/05/2022 Social Influencers of Health Screening 02/05/2022 Depression Screening 02/28/2024 Influenza Vaccine (#1) 2024 , 11/01/2023, 11/01/2022, Additional history exists Lung Cancer Screening (Low Dose CT) 05/01/2025 05/01/2024, 04/27/2023, 04/26/2022, Additional history exists Breast Cancer Screening 09/26/2026 09/27/19 25, 09/20/2023, 09/20/2023, Additional history exists RSV Immunization Adult Patients (1 - 1-dose 75+ series) 09/30/2030 DTaP,Tdap,and Td Vaccines (4 - Td or Tdap) 05/22/2033 05/23/2023, 12/13/2013, 11/02/2005 Zoster Vaccines Completed 06/30/2022, 04/28/2022 COVID-19 Vaccine Completed 06/06/2024, , 07/13/2023, Additional history exists HIB Vaccines Aged Out [...] on patient's age to complete this topic MMR Vaccines Aged Out No longer eligi ble based on patient's age to complete this topic Meningococcal ACWY Vaccine Aged Out N o longer eligible based on patient's age to complete this topic Meningococcal B Vaccine Aged Out No l onger eligible based on patient's age to complete this topic RSV Immunization Patients Under 20 months Aged Out No longer eligible based on patient's age to complete this topic Varicella Vaccines Aged Out No longer eligible based on patient's age to complete this topic Procedures Procedure Name Priority Date/Time Associated Diagnosis Comments CT CHEST WO CONTRAST (LUNG-RADS F/U) Routine 11/18/2024 9:57 AM EDT Pulmonary nodule less than 6 mm determined by computed tomography of lung MG MAMMO DIGITAL SCREENING W DAKOTAH BILAT Routine 09/26/2024 8:10 AM EDT Encounter for screening mammogram for breast cancer CT LUNG SCREENING Routine 05/01/2024 12: 51 PM EST Encounter for screening for malignant neoplasm of respiratory organs Nicotine dependence, cigarettes, uncomplicated from Last 3 Months or Most Recently Relevant to Health Maintenance Results * CT Chest wo Contrast (Lung-RADS F/U) (11/18/2024 9:57 AM EDT) Anatomical Region Laterality Modality Body Computed Tomogra phy 11/21/2024 4:02 PM EDT Impressions 11/21/2024 4:31 PM EDT Interval resolution of a small left lower lobe nodule. Lung RADS 1. No suspicious pulmonary nodule. Guidelines recommend repeat low-dose screening CT in 12 months. -------- FINAL REPORT -------- Dictated By: Omkar Covington Dictated Date: 11/21/2024 16:02 ET Assigned Physician: Omkar Covington Reviewed and Electronically Signed By: Omkar Covington Signed Date: 11/21/2024 16:31 ET Workstation ID: [id number] Transcribed By: Self Edit Transcribed Date: 11/21/2024 16:02 ET Narrative 11/21/2024 4:31 PM EDT PROCEDURE: Low-dose CT of the chest without intravenous contrast. TECHNIQUE: Low-dose CT of the chest without intravenous contrast administration. Coronal and sagittal reformats and MIP reconstructions were created. Dose length product: 176 mGy-cm. HISTORY: Lung nodule, multiple < 6mm COMPARISON: 05/01/2024. FINDINGS: Lungs/pleura: The central airways are clear and normal in caliber. Mild pleural parenchymal scarring at the apices. Moderate centrilobular and paraseptal emphysema. Scattered stable areas of peripheral interstitial scarring and cystic change. Scattered calcified granulomas. Scattered small foci of segmental bronchial mucus plugging, with several new small foci in the inferior right upper lobe and superior right middle lobe. A previously noted 3 mm left lower lobe nodule has resolved and was likely inflammatory. No pleural effusion or pneumothorax. Mediastinum/desean: No mediastinal mass or lymphadenopathy. No appreciable hilar lymphadenopathy on limited noncontrast evaluation. Vasculature: Normal caliber pulmonary arteries. Mild atherosclerotic calcification of the aorta and great vessels. Cardiac: Normal heart size. No coronary artery calcification. Chest wall: No axillary or supraclavicular lymphadenopathy. Small calcification or surgical clip in the right axilla. Limited abdomen: Unremarkable. Bones: Mild degenerative changes of the shoulders and spine. Small amount of intra-articular gas in the right glenohumeral joint. Procedure Note Omkar Covington MD - 11/21/2024 PROCEDURE: Low-dose CT of the chest without intravenous contrast. TECHNIQUE: Low-dose CT of the chest without intravenous contrastadministration. Coronal and sagittal reformats and MIP reconstructionswere created. Dose length product: 176 mGy-cm. HISTORY: Lung nodule, multiple < 6mm COMPARISON: 05/01/2024. FINDINGS: Lungs/pleura: The central airways are clear and normal in caliber. Mildpleural parenchymal scarring at the apices. Moderate centrilobular andparaseptal emphysema. Scattered stable areas of peripheral interstitialscarring and cystic change. Scattered calcified granulomas. Scatteredsmall foci of segmental bronchial mucus plugging, with several new smallfoci in the inferior right upper lobe and superior right middle lobe. Apreviously noted 3 mm left lower lobe nodule has resolved and was likelyinflammatory. No pleural effusion or pneumothorax. Mediastinum/desean: No mediastinal mass or lymphadenopathy. No appreciablehilar lymphadenopathy on limited noncontrast evaluation. Vasculature: Normal caliber pulmonary arteries. Mild atheroscleroticcalcification of the aorta and great vessels. Cardiac: Normal heart size. No coronary artery calcification. Chest wall: No axillary or supraclavicular lymphadenopathy. Smallcalcification or surgical clip in the right axilla. Limited abdomen: Unremarkable. Bones: Mild degenerative changes of the shoulders and spine. Small amountof intra-articular gas in the right glenohumeral joint. IMPRESSION: Interval resolution of a small left lower lobe nodule. Lung RADS 1. No suspicious pulmonary nodule. Guidelines recommend repeatlow-dose screening CT in 12 months. -------- FINAL REPORT -------- Dictated By: Omkar Covington Dictated Date: 11/21/2024 16:02 ET Assigned Physician: Omkar Covington Reviewed and Electronically Signed By: Omkar Covington Signed Date: 11/21/2024 16:31 ET Workstation ID: [id number] Transcribed By: Self Edit Transcribed Date: 11/21/2024 16:02 ET Willie Rapp MD IMG CT PROCEDURES Final Result * MG Mammo Digital Screening w Dakotah bilat (09/26/2024 8:10 AM EDT) Anatomical Region Laterality Modality Breast Bilateral Mammography 09/26/2024 7:10 PM EDT Impressions 09/26/2024 7:10 PM EDT No mammographic evidence of malignancy. BREAST DENSITY: B - There are scattered areas of fibroglandular density. BI-RADS CATEGORY: 1 - NEGATIVE RECOMMENDATION: Screening bilateral mammogram is recommended in 1 year. MAMMO LOCATION: [facility], [address] [place] [address], [phone], . -------- FINAL REPORT -------- Dictated By: Estephania Mcnally Dictated Date: 09/26/2024 19:10 ET Assigned Physician: Estephania Mcnally Reviewed and Electronically Signed By: Estephania Mcnally Signed Date: 09/26/2024 19:10 ET Workstation ID: [id number] Transcribed By: Self Edit Transcribed Date: 09/26/2024 19:10 ET Narrative 09/26/2024 7:10 PM EDT EXAM: Screening Mammogram CLINICAL: 68 years old, Female, routine annual exam. COMPARISON: 09/20/2023 and as far back as 09/03/2020 TECHNIQUE: Bilateral MLO and CC views were obtained digitally with 3-D mammogram (digital breast tomosynthesis). Computer-aided detection was utilized in evaluation of this exam (CAD). FINDINGS: No new suspicious mass, architectural distortion, or suspicious calcifications. Procedure Note Estephania Mcnally MD - 09/26/2024 EXAM: Screening Mammogram CLINICAL: 68 years old, Female, routine annual exam. COMPARISON: 09/20/2023 and as far back as 09/03/2020 TECHNIQUE: Bilateral MLO and CC views were obtained digitally with 3-Dmammogram (digital breast tomosynthesis). Computer-aided detection wasutilized in evaluation of this exam (CAD). FINDINGS: No new suspicious mass, architectural distortion, or suspiciouscalcifications. IMPRESSION: No mammographic evidence of malignancy. BREAST DENSITY: B - There are scattered areas of fibroglandular density. BI-RADS CATEGORY: 1 - NEGATIVE RECOMMENDATION: Screening bilateral mammogram is recommended in 1 year. MAMMO LOCATION: [facility], [address] [place] [address], [phone], . -------- FINAL REPORT -------- Dictated By: Estephania Mcnally Dictated Date: 09/26/2024 19:10 ET Assigned Physician: Estephania Mcnally Reviewed and Electronically Signed By: Estephania Mcnally Signed Date: 09/26/2024 19:10 ET Workstation ID: [id number] Transcribed By: Self Edit Transcribed Date: 09/26/2024 19:10 ET us Lizzy Lockett MD IMG BI PROCEDURES Final Resul t * CT Lung Screening (05/01/2024 12:51 PM EST) Anatomical Region Laterality Modality Chest Computed Tomogra phy 05/03/2024 10:5 2 AM EST Impressions 05/03/2024 11:06 AM EST Underlying chronic lung disease. Scattered micronodules. There is a new 0.5 cm mostly solid nodule in the posteromedial left lower lobe. LUNG RADS: Lung-RADS 3: PROBABLY BENIGN S Modifier (Significant or Potentially Significant Findings): None present No suspicious nonpulmonary findings. RECOMMENDATIONS: [address] -------- FINAL REPORT -------- Dictated By: Evelio Gamboa Dictated Date: 05/03/2024 10:52 ET Assigned Physician: Evelio Gamboa Reviewed and Electronically Signed By: Evelio Gamboa Signed Date: 05/03/2024 11:06 ET Workstation ID: [id number] Transcribed By: Self Edit Transcribed Date: 05/03/2024 10:52 ET Narrative 05/03/2024 11:06 AM EST EXAMINATION: CT CHEST WITHOUT CONTRAST LUNG CANCER SCREENING, LOW DOSE CLINICAL INFORMATION: Lung cancer screening. Current smoker COMPARISON: Portions of previous 04/26/2023 TECHNIQUE: Multidetector CT. Examination of the chest. Examination of the chest without IV contrast. Reformatting in the coronal and sagittal planes. Device: NovogenT DLP: 173 mGy-cm CTDI: 4.83 Dose optimization was performed including the use of low-dose iterative reconstruction technique with automatic exposure control based on patient size. Type of contrast: None Volume of IV contrast: None Volume of contrast discarded: 0 mL FINDINGS: LUNG: No abnormality of the trachea or mainstem bronchi. No focal pneumonia. LUNG NODULES: There is a new 0.5 cm mostly solid nodule in the posteromedial left lower lobe (3/167). There are multiple scattered bilateral micronodules and there are some calcified granulomata. These appear stable. OTHER PULMONARY: At least moderately severe centrilobular emphysema. There are stacked thin- walled lucencies in the periphery of the left upper lobe and in the dependent aspect of both lower lobes. Although not diagnostic of honeycomb formation fibrosis is suspected. Overall this may have slightly increased when compared to 2019. MEDIASTINUM: There are no enlarged mediastinal or hilar lymph nodes. No suspicious abnormalities of the esophagus CARDIAC: The heart is not enlarged. No pericardial fluid or thickening No coronary calcifications demonstrated. VASCULAR: There is no thoracic aortic aneurysm. The main pulmonary artery is normal caliber PLEURA: There is no pleural fluid or pneumothorax AXILLA/CHEST WALL: There are no enlarged axillary lymph nodes. No chest wall mass demonstrated VISUALIZED UPPER ABDOMEN: No suspicious abnormality on limited assessment of the visualized upper abdomen MUSCULOSKELETAL: No suspicious focal bony lesion demonstrated. Chondroid matrix in the right humeral head could represent enchondroma but is not entirely included or specific. Procedure Note Evelio Gamboa MD - 05/03/2024 EXAMINATION: CT CHEST WITHOUT CONTRAST LUNG CANCER SCREENING, LOW DOSE CLINICAL INFORMATION: Lung cancer screening. Current smoker COMPARISON: Portions of previous 04/26/2023 TECHNIQUE: Multidetector CT. Examination of the chest. Examination of the chest without IV contrast. Reformatting in the coronal and sagittal planes. Device: [employer] VCT DLP: 173 mGy-cm CTDI: 4.83 Dose optimization was performed including the use of low-dose iterativereconstruction technique with automatic exposure control based on patientsize. Type of contrast: None Volume of IV contrast: None Volume of contrast discarded: 0 mL FINDINGS: LUNG: No abnormality of the trachea or mainstem bronchi. No focalpneumonia. LUNG NODULES: There is a new 0.5 cm mostly solid nodule in theposteromedial left lower lobe (3/167). There are multiple scattered bilateral micronodules and there are somecalcified granulomata. These appear stable. OTHER PULMONARY: At least moderately severe centrilobular emphysema.There are stacked thin-walled lucencies in the periphery of the left upperlobe and in the dependent aspect of both lower lobes. Although notdiagnostic of honeycomb formation fibrosis is suspected. Overall this mayhave slightly increased when compared to 2020. MEDIASTINUM: There are no enlarged mediastinal or hilar lymph nodes. Nosuspicious abnormalities of the esophagus CARDIAC: The heart is not enlarged. No pericardial fluid or thickening No coronary calcifications demonstrated. VASCULAR: There is no thoracic aortic aneurysm. The main pulmonary arteryis normal caliber PLEURA: There is no pleural fluid or pneumothorax AXILLA/CHEST WALL: There are no enlarged axillary lymph nodes. No chestwall mass demonstrated VISUALIZED UPPER ABDOMEN: No suspicious abnormality on limited assessmentof the visualized upper abdomen MUSCULOSKELETAL: No suspicious focal bony lesion demonstrated. Chondroidmatrix in the right humeral head could represent enchondroma but is notentirely included or specific. IMPRESSION: Underlying chronic lung disease. Scattered micronodules. There is a new 0.5 cm mostly solid nodule in the posteromedial left lowerlobe. LUNG RADS: Lung-RADS 3: PROBABLY BENIGN S Modifier (Significant or Potentially Significant Findings): Nonepresent No suspicious nonpulmonary findings. 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 Health Care Decision (hx) 01/10/2019 AD RAHMAN DIRECTIVE Health Care Decision (hx) 01/10/2019 AD RAHMAN DIRECTIVE Health Care Decision (hx) 01/10/2019 AD RAHMAN DIRECTIVE Health Care Decision (hx) 01/10/2019 AD RAHMAN DIRECTIVE Health Care Decision (hx) 01/10/2019 AD RAHMAN DIRECTIVE Health Care Decision (hx) 01/10/2019 AD RAHMAN DIRECTIVE Health Care Decision (hx) 01/10/2019 AD RAHMAN DIRECTIVE Health Care Decision (hx) 01/09/2019 AD RAHMAN DIRECTIVE Health Care Decision (hx) 01/09/2019 AD RAHMAN DIRECTIVE Health Care Decision (hx) 01/09/2019 AD RAHMAN DIRECTIVE Health Care Decision (hx) 01/09/2019 AD RAHMAN DIRECTIVE Health Care Decision (hx) 01/09/2019 AD RAHMAN DIRECTIVE Health Care Decision (hx) 01/09/2019 AD RAHMAN DIRECTIVE Health Care Decision (hx) 01/09/2019 AD RAHMAN DIRECTIVE Care Teams Sample Driller Relationship Specialty Start Date End Date Lizzy Lockett MD [address] [place] [id number] PCP - General Internal Medicine 01/01/21
--- OUTSIDE RECORDS SUMMARY | 2024-12-02 06:20 | XMS_ITS | Patient Health Record ---
Author Organization [facility] Address [address] [place] [address] Care Team Providers Care Certified Technician Name Role Phone Lizzy Lockett MD Primary Care Provider Unavaila ble Black, Madalyn Unavailable [phone] Allergies Allergen (clinical drug ingredient) Drug/Non Drug Allergy documented on EMR Reaction Allergy Type Onset Date Status codeine Codeine headache Drug Allergy Active Latex Latex eyes weep Allergy Active Reason For Referral No Information Medications Medication SIG (Take, Route, Frequency, Duration) Notes Start Date End Date Status Pantoprazole Sodium 20 MG 1 tablet 1/2 t o 1 hour before morning meal Orally Once a day Active Betamethasone Dipropionate 0.05 % 1 application Externally Once a day Active Betamethasone Dipropionate 0.05 % 1 application Externally Once a day 09/11/2024 Active Urea 40 % 1 application to aff ected area on feet Externally Twice a day; Duration: 30 days 09/11/2024 Active Clobetasol Propionate E 0.05 % 1 application Externally Twice a day; Duration: 30 days 10/11/2024 Active Immunizations Vaccine Route Administration Date Status Comme nts Influenza Unknown 11/01/2023 Administered Social History Tobacco Use: Social History Observation Description Date Details (start date - stop date) Never Smoker NA - NA Tobacco use other than smoking: Question Answer Notes Are you an other tobacco user? No Tobacco Control (Standard) Question Answer Notes Tobacco use: Nonsmoker Additional Findings: Tobacco non-user Current no nsmoker AUDIT-C (Standard) Question Answer Notes Did you have a drink containing alcohol in the p ast year? No Points 0 Interpretation Negative Problems No Known Problems Vital Signs Blood pressure diastolic 80 mm Hg 10/11/2024 Height 5ft5in in 10/11/2024 Blood pressure systolic 132 mm Hg 10/11/2024 Weight 138 lbs 10/11/2024 BMI 22.96 kg/m2 10/11/2024 Procedures Procedure Date Ordered Date Performed Result Body Sit e 71712-PWPLAIA NAIL, 6 OR MORE 10/11/2024 N/A Encounters Encounter [facility] Date [facility] [address] 09/11/2024 Madalyn Black Nummular eczematous dermatitis L30.0 ; Onychomycosis B35.1 ; Pain in right toe(s) M79.674 ; Pain in left toe(s) M79.675 and Psoriasiform dermatitis L30.[address] [address] 10/11/2024 Madalyn Black Nummular eczematous dermatitis L30.0 ; Onychomycosis B35.1 ; Pain in right toe(s) M79.674 and Pain in left toe(s) M79.675 [facility] [address] [place] [address] 08/06/2024 [facility] [address] 09/11/2024 Madalyn Black Assessments Encounter Date Diagnosis (ICD Code) Assessment Notes Treatment Notes Treatment Clinical Notes Section Notes 09/11/2024 Onychomycosis (ICD-10 - B35.1) EBM Medical prescription ordered and faxed 09/11/2024 Nummular eczematous dermatitis (ICD-10 - L30.0) 10/11/2024 Onychomycosis (ICD-10 - B35.1) 10/11/2024 Nummular eczematous dermatitis (ICD-10 - L30.0) 09/11/2024 Pain in right toe(s) (ICD-10 - M79.674) 10/11/2024 Pain in right toe(s) (ICD-10 - M79.674) 09/11/2024 Pain in left toe(s) (ICD-10 - M79.675) 10/11/2024 Pain in left toe(s) (ICD-10 - M79.675) 09/11/2024 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) Plan Of Treatment Pending Test Test Name Order Date [id number] NAIL, 6 OR MORE 06/02/2021 [id number] NAIL, 6 OR MORE 10/11/2024 Next Appt Details Provider Name:Madalyn Reyes , 12/31/2024 08:30:00 AM, [address] [facility], [place], [address], Insurance Providers Payer Name Payer Address Payer Phone Subscriber Number Group Number Insured Name Patient Relationship to Insured Coverage Start Date Coverage End Date Medicare National Govt [employer] [address] [place] [phone] [id number] [place] Schultz Self - patient is the insured 1 [employer] ([employer]) [address] [place] [address] [id number] [place] Schultz Self - patient is the insured 1 Medical (General) History Medical History History ICD Code asthma Chicken pox Psoriasis/eczema Sinus conditions Reflux (GERD) Surgical History Surgery Date(Month/Year) 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
--- OUTSIDE RECORDS SUMMARY | 2024-12-02 06:20 | XMS_ITS | Clinical Summary ---
Author Organization [facility] Address [address] [facility] [facility] [address] [place] [address] Care Team Providers Care Adventure Education Teacher Name Role Phone Lizzy Lockett MD Unavailable [phone] No, Pcp Primary Care Provider Unavailabl [...] 1955 FIT-DNA 1955 FIT 1955 FOBT 1955 Lipid Panel 1955 Sigmoidoscopy 1955 Mammogram 1995 Pneumococcal Vaccine: 50+ Years (1 of 1 - PCV) 09/30/2005 Zoster Vaccines (1 of 2) 09/30/2005 DTaP/Tdap/Td Vaccines (2 - Td or Tdap) 12/14/2023 12/13/2013, 11/02/2005 Depression Screening 02/28/2024 COVID-19 Vaccine ( season) 2024 12/17/2020, 06/12/2020, 05/22/2020 Influenza Vaccine (#1) 2024 , 10/30/2019, 11/13/2018, [...] topic Insurance MEDICARE PART A AND B [facility] Care Teams Adventure Education Teacher Relationship Specialty Start Date End Date No, Pcp, PCP - General Internal Medicine 06/08/21 Lizzy Lockett MD [facility] [place], [place] [phone] Referring Physician Supervisor [employer] 06/08/21
[2024-12-02 10:29] LABS: Appearance Urine Clear; Glucose Urine UA Negative (Negative); PH 7.0 (5.0-9.0); Specific Gravity - Urine 1.020 (1.005-1.025); UMIC TRIGGER UA YES
[2024-12-02 10:38] LABS: MANUAL DIFF FLAG NO
[2024-12-02 10:42] LABS: Hematocrit 41.8 % (37.0-47.0); Hemoglobin 13.9 g/dl (12.0-16.0); Imm Gran Abs Auto 0.07 X10*3/uL (0.00-0.03); Imm Gran Pct Auto 0.9 % (0.0-0.4); Lymphocytes Absolute Auto 1.7 X10*3/uL (1.2-4.9); Mean Corpuscular HGB Conc 33.3 g/dl (31.0-35.0); Mean Corpuscular Hemoglobin 29.1 pg (27.0-33.0); Mean Corpuscular Volume 87.6 fL (80.0-98.0); NRBC Abs Auto 0.000 X10*3/uL (0.0-0.012); NRBC Pct Auto 0.0 /100WBC (0.0-0.2); Platelet Count 299 X10*3/uL (160-400); Red Blood Count 4.77 X10*6/uL (4.20-5.50); White Blood Count 7.9 X10*3/uL (4.8-10.8)
[2024-12-02 11:11] LABS: Alanine Aminotransferase 21 U/L (0-31); Albumin Level 4.4 g/dL (3.5-5.0); Alkaline Phosphatase 64 U/L (39-117); Anion Gap 11 (12-20); Aspartate Amino Transferase 28 U/L (5-31); Blood Urea Nitrogen 12 mg/dL (9-16); Calcium 9.1 mg/dL (8.4-10.2); Carbon Dioxide 28 mmol/L (22-29); Chloride 106 mmol/L (96-108); Cholesterol 195 mg/dL (<200); Estimated Glomerular Filt Rate > 60; HDL Cholesterol 52 mg/dL (>40); Potassium 4.5 mmol/L (3.3-5.1); Sodium 140 mmol/L (135-145); Total Protein 7.1 g/dL (6.5-8.0); Triglycerides 67 mg/dL (<150)
[2024-12-02 11:28] LABS: Folate 12.0 ng/mL (> or = 4.0); Vitamin B12 528 pg/mL (200-900)
== END 2024-12-02 06:17 | disposition home or self-care (01) ==
LOC: HO.HMGCLDS 06:16
PROVIDERS: PCP Internal Medicine; Visit Provider Internal Medicine
DX: Z00.00 Encounter for general adult medical examination without abnormal findings (principal); Z13.6 Encounter for screening for cardiovascular disorders; E53.8 Deficiency of other specified B group vitamins; E55.9 Vitamin D deficiency, unspecified
CPT/HCPCS: 36415; 80053; 80061; 81001; 82306; 82607; 82746; 85025

== ENCOUNTER 2024-12-10 13:02 | Outpatient (AMB) | payer MEDICARE, OTHER, SELFPAY ==
[2024-12-10 13:35] VITALS: BP 118/68; PULSE 81; RESP 18; TEMP 36.8; O2SAT 96; BMI 23.6
--- NOTE | 2024-12-10 13:35 | A.OFFPC_ITS ---
Vital Signs 12/10/24 13:35 Height 5 ft 5 in Weight 142 lb BMI 23.6 BP 118/68 Blood Pressure Location Lt brachial Position Sitting Respiration 18 Pulse 81 Pulse Source Pulse Oximeter Temp 98.2 F Temp Source Oral Pulse Oximetry (%) 96 Oxygen Delivery Method Room Air Intake Visit Reasons: Annual PE Intake Note: Pt is here today for PE. Allergies latex Allergy (Verified 12/10/24 13:44) eyes swelling Medication List - Last Reconciled 12/10/24 by Lizzy Lockett MD multivitamin 1 tab PO DAILY pantoprazole 20 mg PO QAM 90 days Tobacco use date assessed: 12/10/24 Fall risk assessment: No Falls in past year Last assessed Fall Risk: 12/10/24 Dental Screening Dental Screen Date: 12/10/24 Did you have a dental visit in the last 12 months?: Yes Did you have a dental problem in the last 6 months where you did not have access to dental care?: No Was dental information given to patient?: Patient has dentist HPI Annual PE HPI Details Pt presents for PE. [facility] Medical History (Updated 12/10/24 @ 14:00 by Lizzy Lockett MD) Hx of screening mammography Acid reflux Vitamin D deficiency Annual physical exam Postmenopausal Normal breast exam Glaucoma Tobacco dependence Vocal cord polyps Surgical History History of vocal cord polypectomy History of esophagogastroduodenoscopy (EGD) History of repair of vocal cord H/O colonoscopy Family History Father No problems noted. 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 1. Little interest or pleasure in doing things: not at all 2. Feeling down, depressed, or hopeless: not at all 3. Trouble falling or staying asleep, or sleeping too much: not at all 4. Feeling tired or having little energy: not at all 5. Poor appetite or overeating: not at all 6. Feeling bad about yourself - or that you are a failure or have let yourself or your family down: not at all 7. Trouble concentrating on things, such as reading the newspaper or watching television: not at all 8. Moving or speaking so slowly that other people could have noticed. Or the opposite - being so fidgety or restless that you have been moving around a lot more than usual: not at all 9. Thoughts that you would be better off or of hurting yourself in some way: not at all Total score: 0 Depression Screening Interpretation: Negative Depression Screening Done: Yes 27974 - PHQ-9 Billing: Yes Source: Developed by Drs. Edgard Farfan, Gabby Ocasio, Tao Calvillo and colleagues, with an educational key from [employer]. Thrive Questionnaire Date Thrive assessed: 12/10/24 I am a: Patient What is your living situation today?: I have a steady place to live Within the past 12 months, did the food you bought not last and you didn't have the money to get more?: Never true Within the past 12 months, did you worry whether your food would run out before you got money to buy more?: Never true Do you have trouble paying for medicines?: No Do you have trouble getting transportation to medical appointments?: No Do you have trouble paying your heating and electricity bill?: No Do you have trouble taking care of your child, family member or friend?: No Do you have trouble with day-to-day activities such as bathing, preparing meals, shopping, managing finances, etc.?: No Are you currently unemployed and looking for a job?: No Are you interested in more education?: No Please select the resources that you would like help with: None Currently or been in a relationship where the following occur: No concerns reported THRIVE Score: 0 AUDIT C Alcohol Use Questionnaire (AUDIT-C) 1. How often do you have a drink containing alcohol?: 2-4 times a month 2. How many drinks containing alcohol do you have on a typical day when you are drinking?: 1 or 2 3. How often do you have six or more drinks on one occasion?: Never Total Score: 2 TELLY-7 AMB Questionnaire TELLY-7 Date TELLY - 7 assessed: 12/10/24 Feeling nervous, anxious, or on edge: 0 = Not at all Not being able to stop or control worryin = Not at all Worrying too much about different things: 0 = Not at all Trouble relaxin = Not at all Being so restless that it is hard to sit still: 0 = Not at all Becoming easily annoyed or irritable: 0 = Not at all Feeling afraid as if something awful might happen: 0 = Not at all Total TELLY-7 score (0-4 normal; 5-9 mild; 10-14 moderate; 15-21 severe): 0 Source: Developed by Drs. Edgard Farfan, Gabby Ocasio, Tao Calvillo and colleagues, with an educational key from [employer]. TELLY-7 Assessment Billing TELLY-7 Assessment Tool: TELLY-7 Assessment 42195 Review of Systems Const All systems reviewed & are unremarkable except as noted in HPI and below Eyes Reports no additional complaints ENT Reports no additional complaints Card Reports no additional complaints Resp Reports no additional complaints GI Reports no additional complaints Reports no additional complaints Physical exam (Primary Care) Vital Signs: Last Vital Signs Temp 98.2 F 12/10/24 13:35 Pulse 81 12/10/24 13:35 Resp 18 12/10/24 13:35 BP 118/68 12/10/24 13:35 Pulse Ox 96 12/10/24 13:35 Oxygen Delivery Method Room Air 12/10/24 13:35 BMI result Body Mass Index 23.6 Tobacco/Smoking Status: Tobacco use Status Tobacco use date assessed 12/10/24 12/10/24 13:47 Patient Tobacco Use Status Former Tobacco user 12/10/24 13:36 e-Cigarette/Vaping Use Never Used 12/10/24 13:36 PHQ-9: PHQ-9 Score PHQ-9: Total score 0 12/10/24 13:47 Depression Screening Interpretation: Negative Thrive Assessment: Date of Thrive Assessment Date Thrive assessed 12/10/24 12/10/24 13:47 Currently or been in a relationship where the following occur: No concerns reported Const General: no acute distress HENMT Head: Yes normal to inspection Ears: hearing grossly normal bilaterally Face and sinus: Yes normal facial exam Mouth: Normal oral and palatal mucosa present Eyes General: appearance normal, both eyes and all related structures Neck Neck: Yes no lymphadenopathy and Yes supple Resp Effort & Inspection: normal respiratory effort Auscultation: clear to auscultation bilaterally Cardio Rhythm: regular rhythm Heart sounds: S1 normal heart sound present and S2 normal heart sound present GI Inspection: Yes normal to inspection Palpation (GI): Soft to palpation Percussion: Yes normal to percussion Auscultation: normal bowel sounds Extrem General: Yes no clubbing, cyanosis or edema Coding Level of Care Code Est Pt Prev Care >65y(96297) Diagnoses Annual physical exam Z00. Vitamin D deficiency E55.9 Additional Codes TELLY-7 Assessment Billing - TELLY-7 Assessment Tool: TELLY-7 Assessment 24739 ([id number]) PHQ-9 - 59057 - PHQ-9 Billing: Yes ([id number]) Assessment & Plan Assessment & Plan (1) Annual physical exam: Code(s): Z00.00 - Encounter for general adult medical examination without abnormal findings Category: Medical Plan: Well-balanced diet regular physical activity discussed with the patient. She is up-to-date with the mammogram colonoscopy (2) Vitamin D deficiency: Code(s): E55.9 - Vitamin D deficiency, unspecified Category: Medical Plan: Continue vitamin-D supplement, follow-up in 1 year Orders: Orders TSH reflex Free T4 1 Year E55.9 - Vitamin D deficiency, unspecified, Z00.00 - Encounter for general adult medical examination without abnormal findings Comprehensive [place]. Panel Fast 1 Year E55.9 - Vitamin D deficiency, unspecified, Z00.00 - Encounter for general adult medical examination without abnormal findings Lipid Panel 1 Year E55.9 - Vitamin D deficiency, unspecified, Z00.00 - Encounter for general adult medical examination without abnormal findings Complete Blood Count Auto Diff 1 Year E55.9 - Vitamin D deficiency, unspecified, Z00.00 - Encounter for general adult medical examination without abnormal findings UA w Microscopic 1 Year E55.9 - Vitamin D deficiency, unspecified, Z00.00 - Encounter for general adult medical examination without abnormal findings Vitamin D 25-OH Total 1 Year E55.9 - Vitamin D deficiency, unspecified, Z00.00 - Encounter for general adult medical examination without abnormal findings
--- OUTSIDE RECORDS SUMMARY | 2024-12-10 15:44 | XMS_ITS | Patient Health Record ---
[facility] Address [address] [place] [address] Care Team Providers Care Lead Caster Name Role Phone Lizzy Lockett MD Primary Care Provider Unavaila ble Black, Madalyn Unavailable [phone] Allergies Allergen (clinical drug ingredient) Drug/Non Drug [...] Ordered Date Performed Result Body Sit e 29743-[id number] NAIL, 6 OR MORE 10/11/2024 N/A Encounters Encounter [facility] Date [facility] [address] 09/11/2024 Madalyn Black Nummular eczematous dermatitis L30.0 ; Onychomycosis B35.1 ; Pain in right toe(s) M79.674 ; Pain in left toe(s) M79.675 and Psoriasiform dermatitis L30.[address] [address] 10/11/2024 Madalyn Black Nummular eczematous dermatitis L30.0 ; Onychomycosis B35.1 ; Pain in right toe(s) M79.674 and Pain in left toe(s) M79.675 [facility] [address] [place] [address] 08/06/2024 [place] [facility] [address] 09/11/2024 Madalyn Black Assessments Encounter Date Diagnosis [...] Treatment Pending Test Test Name Order Date [id number] NAIL, 6 OR MORE 06/02/2021 [id number] NAIL, 6 OR MORE 10/11/2024 Next Appt Details Provider Name:Madalyn Reyes , 12/31/2024 08:30:00 AM, [address] [facility], [place], [address], Insurance Providers Payer Name Payer Address Payer Phone Subscriber Number Group Number Insured Name Patient Relationship to Insured Coverage Start Date Coverage End Date Medicare National Govt [email or web address] [address] [place] [phone] [id number] [place] Schultz Self - patient is the insured 1 [employer] [address] [place] [address] [id number] [place] Schultz Self - patient is the insured 1 Medical (General) History Medical History History ICD Code asthma Chicken pox Psoriasis/eczema Sinus conditions Reflux (GERD) Surgical History Surgery Date(Month/Year) 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
--- OUTSIDE RECORDS SUMMARY | 2024-12-10 15:44 | XMS_ITS | Clinical Summary ---
Author Organization [facility] [address] [facility] Address [address] [place] [address] Phone Care Team Providers Care Editorial Intern Name Role Phone Lizzy Lockett MD Primary Care Provider [phone] Encounters Date Type Department Care Team Description 11/18/2024 9:42 AM EDT - 11/18/2024 11:59 PM EDT Hospital Encounter [facility] Scan [address] [place] [id number] Pulmonary nodule less than 6 mm determined by computed tomography of lung Discharge Disposition: Home or Self Care 09/26/2024 7:54 AM EDT - 09/26/2024 11:59 PM EDT Hospital Encounter Radiology Department - [address] [address] Encounter for screening mammogram for breast cancer Discharge Disposition: Home or Self Care from Last 3 Months Surgical History Surgery Date Site/Laterality Comments COLONOSCOPY 04/07/2006 PROCEDURE: HISTORICAL COLONOSCOPY; COMMENT: Colon polyp: 1 cm. rectal COLONOSCOPY 08/03/2009 PROCEDURE: [place] COLONOSCOPY STOMA DX INCLUDING COLLJ SPEC SPX; COMMENT: normal; repeat in five years COLONOSCOPY 10/03/2014 PROCEDURE: HISTORICAL COLONOSCOPY; COMMENT: normal; repeat in 5 yrs COLONOSCOPY 01/09/2019 PROCEDURE: HISTORICAL COLONOSCOPY; COMMENT: negative, rpt 5 years OTHER SURGICAL HISTORY PROCEDURE: MI LARGSC MICRO/TELESCOPE RMVL LES VOCAL CORD GRAFT [...] Signed Date: 11/21/2024 16:31 ET Workstation ID: [id number] Transcribed By: Self Edit Transcribed Date: 11/21/2024 [...] Signed Date: 11/21/2024 16:31 ET Workstation ID: [id number] Transcribed By: Self Edit Transcribed Date: 11/21/2024 [...] is recommended in 1 year. MAMMO LOCATION: [facility], [address] [place] [address], [phone], . -------- FINAL REPORT -------- Dictated By: Estephania Mcnally Dictated Date: 09/26/2024 19:10 ET Assigned Physician: Estephania Mcnally Reviewed and Electronically Signed By: Estephania Mcnally Signed Date: 09/26/2024 19:10 ET Workstation ID: [id number] Transcribed By: Self Edit Transcribed Date: 09/26/2024 [...] is recommended in 1 year. MAMMO LOCATION: [facility], [address] [place] [address], [phone], . -------- FINAL REPORT -------- Dictated By: Estephania Mcnally Dictated Date: 09/26/2024 19:10 ET Assigned Physician: Estephania Mcnally Reviewed and Electronically Signed By: Estephania Mcnally Signed Date: 09/26/2024 19:10 ET Workstation ID: [id number] Transcribed By: Self Edit Transcribed Date: 09/26/2024 [...] Signed Date: 05/03/2024 11:06 ET Workstation ID: [id number] Transcribed By: Self Edit Transcribed Date: 05/03/2024 10:52 ET Narrative 05/03/2024 11:06 AM EST EXAMINATION: CT CHEST WITHOUT CONTRAST LUNG CANCER SCREENING, LOW DOSE CLINICAL INFORMATION: Lung cancer screening. Current smoker COMPARISON: Portions of previous 04/26/2023 TECHNIQUE: Multidetector CT. Examination of the chest. Examination of the chest without IV contrast. Reformatting in the coronal and sagittal planes. Device: VerbalizeItT DLP: 173 mGy-cm CTDI: 4.83 Dose optimization [...] in the coronal and sagittal planes. Device: Klout VCT DLP: 173 mGy-cm CTDI: 4.83 Dose [...] Signed Date: 05/03/2024 11:06 ET Workstation ID: [id number] Transcribed By: Self Edit Transcribed Date: 05/03/2024 10:52 ET Willie Rapp MD IMG CT PROCEDURES Final Result from Last 3 Months or Most Recently Relevant to Health Maintenance Insurance MEDICARE [facility] Advance Directives Documents on File Type Date Recorded Patient Photo Finisher Expl anation Health Care Decision (hx) 01/10/2019 [...] (hx) 01/09/2019 AD RAHMAN DIRECTIVE Care Teams Editorial Intern Relationship Specialty Start Date End Date Lizzy Lockett MD [address] [place] [id number] PCP - General Internal Medicine 01/01/21
--- OUTSIDE RECORDS SUMMARY | 2024-12-10 15:44 | XMS_ITS | Clinical Summary ---
Author Organization [facility] Address [address] [place] [address] Phone Care Team Providers Care Terrazzo Polisher Name Role Phone Lizzy Lockett MD Primary Care Provider [phone] Allergies Active Allergy Reactions Criticality Noted Date [...] file Insurance MEDICARE PART A & B [employer] MEDICARE SUPPLEMENT MEDICARE PART A & B [employer] MEDICARE SUPPLEMENT MEDICARE PART A & B [facility] MEDICARE SUPPLEMENT MEDICARE PART A & B [facility] MEDICARE SUPPLEMENT MEDICARE PART A & B [facility] MEDICARE SUPPLEMENT MEDICARE PART A & B [facility] MEDICARE SUPPLEMENT Care Teams Terrazzo Polisher Relationship Specialty Start Date End Date Lizzy Lockett MD [address] [facility] [place] [address] PCP - General Internal Medicine 09/18/23 Additional Source Comments The information contained in this document represents components of the legal health record. It is not the complete legal health record.[facility]
== END 2024-12-10 14:25 | disposition home or self-care (01) ==
LOC: HO.HMCC 13:03
PROVIDERS: PCP Internal Medicine; Visit Provider Internal Medicine
DX: Z00.00 Encounter for general adult medical examination without abnormal findings (principal); E55.9 Vitamin D deficiency, unspecified

== ENCOUNTER → 2024-12-10 13:02 | Outpatient (BNVA) | payer MEDICARE, OTHER, SELFPAY | PROVIDERS: PCP Internal Medicine; Visit Provider Internal Medicine | DX: Z00.00 Encounter for general adult medical examination without abnormal findings (principal); E55.9 Vitamin D deficiency, unspecified | CPT/HCPCS: 96127; 99397 ==